=== PATIENT | female | born 1970 | race Caucasian/White ===

== ENCOUNTER 2018-04-08 18:07 | Outpatient (REF) | payer BC, SELFPAY ==
[2018-04-08 21:08] LABS: HCT 36.9 % (36.0-46.0); HGB 11.5 g/dL (12.0-15.5); Mean Corp. HGB Concentration 31.2 g/dL (32.0-36.0); Mean Corpuscular Hemoglobin 24.3 pg (27.0-33.0); Mean Platelet Volume 10.8 fL (8.0-11.0); Platelet Count 446 x1000/uL (130-400); RBC 4.73 m/cumm (4.00-5.20); RBC Distribution Width 16.7 % (11.7-14.6); White Blood Cell Count 8.68 k/cumm (4.4-10.8)
[2018-04-08 21:35] LABS: Iron 31 ug/dL (50-175); Total Iron Binding Capacity 420 ug/dL (250-450); Transferrin Sat 7 % (15-50)
[2018-04-08 21:48] LABS: Cholesterol 283 mg/dL (50-200); HDL Cholesterol 54 mg/dL (40-60); LDL CHOLESTEROL 197 mg/dL (<100); TSH 2.01 uIU/mL (0.358-3.74); Triglyceride 170 mg/dL (30-150)
[2018-04-08 22:01] LABS: Vitamin D 25 Total 15.2 ng/ml (30-100)
[2018-04-08 22:10] LABS: FREE T4 0.96 ng/dL (0.76-1.46)
== END 2018-04-08 18:27 ==
LOC: NCHCN 18:07
PROVIDERS: PCP Nurse Practitioner Family; Visit Provider Nurse Practitioner Family
DX: E04.2 Nontoxic multinodular goiter (principal); N95.1 Menopausal and female climacteric states; M54.5 Low back pain; F41.8 Other specified anxiety disorders; R53.83 Other fatigue; E78.5 Hyperlipidemia, unspecified; E66.9 Obesity, unspecified
CPT/HCPCS: 80061; 82306; 83721; 85027; 83540; 83550; 84439; 84443; 84481

== ENCOUNTER 2018-07-09 08:14 | Outpatient (REF) | payer BC, SELFPAY ==
[2018-07-09 13:27] LABS: HCT 39.2 % (36.0-46.0); HGB 12.4 g/dL (12.0-15.5); Mean Corp. HGB Concentration 31.6 g/dL (32.0-36.0); Mean Corpuscular Hemoglobin 25.7 pg (27.0-33.0); Mean Corpuscular Volume 81.2 fL (80-95); Mean Platelet Volume 10.7 fL (8.0-11.0); Platelet Count 409 x1000/uL (130-400); RBC 4.83 m/cumm (4.00-5.20); White Blood Cell Count 6.49 k/cumm (4.4-10.8)
[2018-07-11 06:35] LABS: Vitamin D 25 Total 16.2 ng/ml (30-100)
== END 2018-07-09 08:34 ==
LOC: NCHCN 08:14
PROVIDERS: PCP Nurse Practitioner Family; Visit Provider Nurse Practitioner Family
DX: D50.9 Iron deficiency anemia, unspecified (principal); E55.9 Vitamin D deficiency, unspecified
CPT/HCPCS: 82306; 85027

== ENCOUNTER 2018-11-05 15:16 | Outpatient (REF) | payer SELFPAY | END 2018-11-05 15:36 | LOC: NCHCN 15:16 | PROVIDERS: PCP Nurse Practitioner Family; Visit Provider Nurse Practitioner Family | DX: N39.0 Urinary tract infection, site not specified (principal); M54.5 Low back pain | CPT/HCPCS: 87086 ==

== ENCOUNTER 2019-04-09 06:13 | Outpatient (CLI) | payer BC, SELFPAY ==
--- NOTE | 2019-04-09 08:37 | DI.MAMMO_ITS ---
EXAM: MG MAMMO SCREENING CLINICAL HISTORY: SCREENING, Z12.31. TECHNIQUE: Bilateral full field digital CC and MLO mammographic images were obtained with 3D tomosyn thesis and utilizing computer aided detection (CAD). COMPARISON: Available for comparison. FINDINGS: Masses/Architectural Distortion: None seen. Microcalcifications: No suspicious pleomorphic-type are seen. Skin Thickening/Nipple Retraction: None. IMPRESSION: 1. No significant interval change with no specific features of malignancy noted. 2. Unless there is more urgent need, screening mammography is recommended, as per [place] [employer] guidelines. ACR BI-RAD Category- 1 Negative Breast Density - Category C - Heterogeneously dense The mammogram demonstrates the patient's breast tissue is dense. Dense breast tissue is very common a nd is not abnormal but dense breast tissue can make it harder to find cancer on a mammogram. Also, de nse breast tissue may increase their breast cancer risk. This information about the result of the [facility] mogram report was provided to the patient to raise their awareness. Use this report when you speak wi th the patient about their risks for breast cancer, which includes their family history. At that time , you may recommend for more screening tests (Ultrasound or MRI) as they might be useful based on the ir risk. A negative radiographic report should not delay biopsy if a dominant or clinically suspicious mass is present. Up to ten percent of cancers are not identified on mammography. A negative report may reinforce clinical impression. Adenosis and dense breasts may obscure an underlying neoplasm. False positive reports average 6 to 10%. Patient will receive a letter notifying them of these results.
== END 2019-04-09 06:33 ==
PROVIDERS: PCP Nurse Practitioner Family; Visit Provider Nurse Practitioner Family
DX: Z12.31 Encounter for screening mammogram for malignant neoplasm of breast (principal)
CPT/HCPCS: 77063; 77067

== ENCOUNTER 2019-04-15 08:56 | Outpatient (CLI) | payer BC, SELFPAY ==
[2019-04-15 09:43] LABS: Abs Immature Grans 0.02 k/cumm (0.0-0.09); Absolute Basophil Count 0.03 k/cumm (0.0-0.2); Absolute Eosinophil Count 0.18 k/cumm (0.0-0.7); Absolute Lymphocyte Count 2.08 k/cumm (1.2-3.4); Basophils % 0.4; Eosinophils % 2.2; HCT 36.4 % (36.0-46.0); HGB 11.5 g/dL (12.0-15.5); Immature Grans % 0.2 %; Mean Corp. HGB Concentration 31.6 g/dL (32.0-36.0); Mean Corpuscular Hemoglobin 24.8 pg (27.0-33.0); Mean Corpuscular Volume 78.6 fL (80-95); Mean Platelet Volume 9.6 fL (8.0-11.0); Neutrophils % 66.2; Platelet Count 425 x1000/uL (130-400); RBC 4.63 m/cumm (4.00-5.20); RBC Distribution Width 16.3 % (11.7-14.6); White Blood Cell Count 8.31 k/cumm (4.4-10.8)
[2019-04-15 10:35] LABS: Iron 28 ug/dL (50-170)
[2019-04-15 10:46] LABS: Calculated LDL 166 mg/dL (<100); Cholesterol 244 mg/dL (<200); HDL Cholesterol 46 mg/dL (40-60); TSH 1.64 uIU/mL (0.36-3.74); Triglyceride 161 mg/dL (<150)
[2019-04-15 11:06] LABS: FREE T4 1.08 ng/dL (0.76-1.46)
[2019-04-15 17:16] LABS: T3,Free 3.1 pg/mL (2.8-5.3)
[2019-04-17 05:29] LABS: Vitamin D 25 Total 15.9 ng/ml (30-100)
== END 2019-04-15 09:16 ==
PROVIDERS: PCP Nurse Practitioner Family; Visit Provider Nurse Practitioner Family
DX: Z00.00 Encounter for general adult medical examination without abnormal findings (principal); D50.9 Iron deficiency anemia, unspecified; K30 Functional dyspepsia; K42.9 Umbilical hernia without obstruction or gangrene; G47.62 Sleep related leg cramps; N39.490 Overflow incontinence; E66.9 Obesity, unspecified; E04.2 Nontoxic multinodular goiter
CPT/HCPCS: 36415; 80061; 82306; 83540; 84439; 84443; 84481; 85025

== ENCOUNTER 2020-06-29 12:36 | Outpatient (REF) | payer OTHER, SELFPAY ==
[2020-06-29 21:11] LABS: Abs Immature Grans 0.04 10^3/uL (0.0-0.06); Absolute Basophil Count 0.05 10^3/uL (0.0-0.2); Absolute Eosinophil Count 0.18 10^3/uL (0.0-0.7); Absolute Monocyte Count 1.24 10^3/uL (0.1-0.8); Absolute Neutrophil Count 8.08 10^3/uL (1.2-6.7); Basophils % 0.4; Eosinophils % 1.5; HCT 38.8 % (36.0-46.0); HGB 12.2 g/dL (11.2-15.7); Immature Grans % 0.3; Lymphocytes % 18.7; MCH 25.4 pg (27.0-33.0); MCHC 31.4 % (32.0-36.0); MCV 80.7 fL (80-95); MPV 10.1 fL (8.0-11.0); Monocytes % 10.5; Neutrophils % 68.6; Nucleated RBC 0 %; Platelet Count 389 10^3/uL (130-400); RBC 4.81 10^6/uL (3.93-5.22); RDW 16.3 % (11.7-14.6); RDW-SD 47.2 fL; WBC 11.78 10^3/uL (4.4-10.8)
== END 2020-06-29 12:37 | disposition home or self-care (01) ==
LOC: LBN 12:36
PROVIDERS: PCP Nurse Practitioner Family; Visit Provider Family Medicine
DX: J02.9 Acute pharyngitis, unspecified (principal)
CPT/HCPCS: 85025; 87070

== ENCOUNTER 2020-12-17 09:10 | Outpatient (REF) | payer OTHER, SELFPAY ==
[2020-12-17 14:55] LABS: Abs Immature Grans 0.03 10^3/uL (0.0-0.06); Absolute Basophil Count 0.05 10^3/uL (0.0-0.2); Absolute Eosinophil Count 0.31 10^3/uL (0.0-0.7); Absolute Lymphocyte Count 2.41 10^3/uL (1.2-3.4); Absolute Monocyte Count 0.46 10^3/uL (0.1-0.8); Absolute Neutrophil Count 4.41 10^3/uL (1.2-6.7); Basophils % 0.7; HCT 39.2 % (36.0-46.0); HGB 12.6 g/dL (11.2-15.7); Immature Grans % 0.4; Lymphocytes % 31.4; MCH 26.6 pg (27.0-33.0); MCHC 32.1 % (32.0-36.0); MCV 82.9 fL (80-95); MPV 10.3 fL (8.0-11.0); Neutrophils % 57.5; Nucleated RBC 0 %; Platelet Count 417 10^3/uL (130-400); RBC 4.73 10^6/uL (3.93-5.22); RDW 15.1 % (11.7-14.6); RDW-SD 45.7 fL; WBC 7.67 10^3/uL (4.4-10.8)
[2020-12-17 15:07] LABS: Iron 70 ug/dL (50-170); Total Iron Binding Capacity 366 ug/dL (250-450); Transferrin Sat 19 % (15-50)
[2020-12-17 15:14] LABS: Calculated LDL 196 mg/dL (<100); Cholesterol 285 mg/dL (<200); HDL Cholesterol 53 mg/dL (40-60); TSH 1.53 uIU/mL (0.36-3.74); Triglyceride 181 mg/dL (<150)
[2020-12-20 04:57] LABS: Vitamin D 25 Total 13.9 ng/mL (30-100)
== END 2020-12-17 09:11 | disposition home or self-care (01) ==
LOC: NCHCN 09:10
PROVIDERS: PCP Nurse Practitioner Family; Visit Provider Nurse Practitioner Family
DX: E78.5 Hyperlipidemia, unspecified (principal); R53.83 Other fatigue; E55.9 Vitamin D deficiency, unspecified; E04.2 Nontoxic multinodular goiter; F32.9 Major depressive disorder, single episode, unspecified
CPT/HCPCS: 80061; 82306; 83540; 83550; 84443; 85025

== ENCOUNTER 2021-02-02 00:25 | Outpatient (CLI) | payer OTHER, SELFPAY ==
--- NOTE | 2021-02-02 07:51 | DI.MAMMO_ITS ---
Exam(s) MAMMO SCREENING EXAM: MAMMO SCREENING CLINICAL HISTORY: SCREENING MAMMO Z12.31, FAM HX BREAST CANCER Z80.3 TECHNIQUE: Bilateral full field digital CC and MLO mammographic images were obtained with 3D tomosyn thesis and utilizing computer aided detection (CAD). COMPARISON: Available for comparison. FINDINGS: Masses/Architectural Distortion: There is a focal asymmetry in the inferior right breast seen on the MLO view 6 cm from the nipple. This area should be further evaluated with a spot compression view. Microcalcifications: No suspicious pleomorphic-type are seen. Skin Thickening/Nipple Retraction: None. IMPRESSION: 1. Focal asymmetry in the inferior right breast on the MLO view. 2. Spot compression views recommended for further evaluation. Ultrasound may be indicated at that ti me. BI-RADS Category 0 - Assessment Incomplete: Need additional imaging evaluation Breast Density - Category C - Heterogeneously dense Breast density category C or D implies that the patient has dense breast tissue. Dense breast tissue is very common and is not abnormal but dense breast tissue can make it harder to find cancer on a ma mmogram. Also, dense breast tissue may increase their breast cancer risk. This information about the result of the mammogram report was provided to the patient to raise their awareness. Use this report when you speak with the patient about their risks for breast cancer, which includes their family hist ory. At that time, you may recommend for more screening tests (Ultrasound or MRI) as they might be us eful based on their risk. A negative radiographic report should not delay biopsy if a dominant or clinically suspicious mass is present. Up to ten percent of cancers are not identified on mammography. A negative report may reinforce clinical impression. Adenosis and dense breasts may obscure an underlying neoplasm. False positive reports average 6 to 10%. Patient will receive a letter notifying them of these results.
== END 2021-02-02 00:45 ==
PROVIDERS: PCP Nurse Practitioner Family; Visit Provider Nurse Practitioner Family
DX: Z12.31 Encounter for screening mammogram for malignant neoplasm of breast (principal); Z80.3 Family history of malignant neoplasm of breast; R92.8 Other abnormal and inconclusive findings on diagnostic imaging of breast
CPT/HCPCS: 77063; 77067

== ENCOUNTER 2021-02-11 00:24 | Outpatient (CLI) | payer OTHER, SELFPAY ==
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
== END 2021-02-11 00:44 ==
PROVIDERS: PCP Nurse Practitioner Family; Visit Provider Nurse Practitioner Family
DX: Z12.31 Encounter for screening mammogram for malignant neoplasm of breast (principal); R92.8 Other abnormal and inconclusive findings on diagnostic imaging of breast
CPT/HCPCS: 76642; 77063; 77067

== ENCOUNTER 2021-07-04 13:34 | Outpatient (REF) | payer OTHER, SELFPAY ==
[2021-07-04 14:22] LABS: Abs Immature Grans 0.03 10^3/uL (0.0-0.06); Absolute Basophil Count 0.05 10^3/uL (0.0-0.2); Absolute Eosinophil Count 0.29 10^3/uL (0.0-0.7); Absolute Lymphocyte Count 2.42 10^3/uL (1.2-3.4); Absolute Monocyte Count 0.47 10^3/uL (0.1-0.8); Basophils % 0.6; Eosinophils % 3.7; HCT 41.4 % (36.0-46.0); Immature Grans % 0.4; Lymphocytes % 31.2; MCH 26.9 pg (27.0-33.0); MCHC 31.4 % (32.0-36.0); MCV 86 fL (80-95); Monocytes % 6.1; Platelet Count 439 10^3/uL (130-400); RBC 4.84 10^6/uL (3.93-5.22); RDW 14.3 % (11.7-14.6); RDW-SD 44.6 fL; WBC 7.76 10^3/uL (4.4-10.8)
[2021-07-04 14:44] LABS: Calculated LDL 195 mg/dL (<100); Cholesterol 282 mg/dL (<200); HDL Cholesterol 55 mg/dL (40-60); Triglyceride 160 mg/dL (<150)
[2021-07-04 14:59] LABS: Vitamin D 25 Total 17.4 ng/mL (30-100)
== END 2021-07-04 13:35 | disposition home or self-care (01) ==
LOC: NCHCN 13:34
PROVIDERS: PCP Nurse Practitioner Family; Visit Provider Nurse Practitioner Family
DX: E04.1 Nontoxic single thyroid nodule (principal); E55.9 Vitamin D deficiency, unspecified; E78.5 Hyperlipidemia, unspecified; R53.83 Other fatigue; D47.3 Essential (hemorrhagic) thrombocythemia; E66.9 Obesity, unspecified; R60.0 Localized edema
CPT/HCPCS: 80061; 82306; 85025

== ENCOUNTER 2021-07-26 15:52 | Outpatient (REF) | payer OTHER, SELFPAY ==
[2021-08-02 11:20] LABS: JAK2 Result see interpretation
== END 2021-07-26 15:53 | disposition home or self-care (01) ==
LOC: NCHCN 15:52
PROVIDERS: PCP Nurse Practitioner Family; Visit Provider Nurse Practitioner Family
DX: E04.1 Nontoxic single thyroid nodule (principal); D47.3 Essential (hemorrhagic) thrombocythemia
CPT/HCPCS: 81270

== ENCOUNTER 2021-12-20 18:14 | Emergency (ER) | payer OTHER, SELFPAY ==
[2021-12-20 18:25] VITALS: BP 183/91; PULSE 78; RESP 18; TEMP 36.8; O2SAT 97
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
[2021-12-20 22:27] VITALS: PULSE 65; RESP 22; TEMP 36.7; O2SAT 97
== END 2021-12-20 22:38 | disposition home or self-care (01) ==
PROVIDERS: Emergency Provider Nurse Practitioner Family; PCP Nurse Practitioner Family
DX: S06.0X0A Concussion without loss of consciousness, initial encounter (principal); M54.6 Pain in thoracic spine; M54.50 Low back pain, unspecified; V89.2XXA Person injured in unspecified motor-vehicle accident, traffic, initial encounter; M54.2 Cervicalgia
CPT/HCPCS: 96361; 96374; 96375; 99284; 70450; 72072; 72110; 72125; 99281

== ENCOUNTER 2021-12-27 08:50 | Outpatient (REF) | payer OTHER, SELFPAY ==
[2021-12-27 17:46] LABS: Calculated LDL 197 mg/dL (<100); Cholesterol 285 mg/dL (<200); Ferritin 27 ng/mL (8-252); HDL Cholesterol 55 mg/dL (40-60); Magnesium 1.9 mg/dL (1.8-2.4); TSH 2.16 uIU/mL (0.36-3.74); Triglyceride 165 mg/dL (<150); Vitamin B12 230 pg/mL (193-986)
== END 2021-12-27 08:51 | disposition home or self-care (01) ==
LOC: NCHCN 08:50
PROVIDERS: PCP Nurse Practitioner Family; Visit Provider Nurse Practitioner Family
DX: E04.1 Nontoxic single thyroid nodule (principal); D47.3 Essential (hemorrhagic) thrombocythemia; I10 Essential (primary) hypertension; R53.83 Other fatigue; D50.9 Iron deficiency anemia, unspecified; E78.5 Hyperlipidemia, unspecified; E55.9 Vitamin D deficiency, unspecified
CPT/HCPCS: 80061; 82306; 82607; 82728; 83735; 84443

== ENCOUNTER 2022-01-03 09:18 | Outpatient (REF) | payer OTHER, SELFPAY ==
--- NOTE | 2022-01-03 08:45 | PAPFT_PTH ---
PATIENT: Yodit Darby LOC: [facility]#:[id number] AGE/SX: 51/F ROOM: RE01/03/[address]: Camelia Larose : 1970 BED: DIS: 01/03/2022 SPEC #: [id number] RECD: 01/03/22 17:50 STATUS: PERRI REJeremias #: [id number] RACHAEL: 01/03/22 08:[address]: Camelia Larose DEPT: [facility] Cytology RECD BY: Irina Dick Tissues: 1 - CX/ENDOCX FOR PAP SMEARS Procedures: PAP THIN PREP/UVM Screening HPV DNA PROBE Comments: [id number]
== END 2022-01-03 09:19 | disposition home or self-care (01) ==
LOC: NCHCN 09:18
PROVIDERS: PCP Nurse Practitioner Family; Visit Provider Nurse Practitioner Family
DX: Z12.4 Encounter for screening for malignant neoplasm of cervix (principal); Z11.51 Encounter for screening for human papillomavirus (HPV)
CPT/HCPCS: 88142; 87624

== ENCOUNTER 2022-01-23 15:03 | Outpatient (REF) | payer OTHER, SELFPAY | END 2022-01-23 15:04 | disposition home or self-care (01) | LOC: NCHCN 15:03 | PROVIDERS: PCP Nurse Practitioner Family; Visit Provider Internal Medicine | DX: N30.00 Acute cystitis without hematuria (principal) | CPT/HCPCS: 87086 ==

== ENCOUNTER 2022-03-24 00:05 | Outpatient (CLI) | payer OTHER, SELFPAY ==
--- NOTE | 2022-03-24 | DI.MAMMO_ITS ---
Exam(s) MAMMO SCREENING EXAM: MAMMO SCREENING CLINICAL HISTORY: SCREENING,Z12.31,PREVENTIVE HEALTH CARE,Z00.00 TECHNIQUE: Bilateral full field digital CC and MLO mammographic images were obtained with 3D tomosyn thesis and utilizing computer aided detection (CAD). COMPARISON: Available for comparison. FINDINGS: Masses/Architectural Distortion: There is an area of increased density in the retroareolar region of the left breast on the MLO view. This may represent overlying fibroglandular tissue. Microcalcifications: No suspicious pleomorphic-type are seen. Skin Thickening/Nipple Retraction: None. IMPRESSION: 1. Area of increased density in the retroareolar region of the left breast on the MLO view. 2. A spot compression views requested for further evaluation. Ultrasound may be indicated at that ti me. BI-RADS Category 0 - Assessment Incomplete: Need additional imaging evaluation Breast Density - Category C - Heterogeneously dense Breast density category C or D implies that the patient has dense breast tissue. Dense breast tissue is very common and is not abnormal but dense breast tissue can make it harder to find cancer on a ma mmogram. Also, dense breast tissue may increase their breast cancer risk. This information about the result of the mammogram report was provided to the patient to raise their awareness. Use this report when you speak with the patient about their risks for breast cancer, which includes their family hist ory. At that time, you may recommend for more screening tests (Ultrasound or MRI) as they might be us eful based on their risk. A negative radiographic report should not delay biopsy if a dominant or clinically suspicious mass is present. Up to ten percent of cancers are not identified on mammography. A negative report may reinforce clinical impression. Adenosis and dense breasts may obscure an underlying neoplasm. False positive reports average 6 to 10%. Patient will receive a letter notifying them of these results.
== END 2022-03-24 00:25 ==
LOC: DI 00:07
PROVIDERS: PCP Nurse Practitioner Family; Visit Provider Nurse Practitioner Family
DX: Z00.00 Encounter for general adult medical examination without abnormal findings (principal); Z12.31 Encounter for screening mammogram for malignant neoplasm of breast; R92.2 Inconclusive mammogram
CPT/HCPCS: 77063; 77067

== ENCOUNTER 2022-03-31 00:29 | Outpatient (CLI) | payer OTHER, SELFPAY ==
--- NOTE | 2022-03-31 | DI.US_ITS ---
Exam(s) MG MAMMO SCREEN CALL BACK UNI US BREAST LT COMPLETE EXAM: MG MAMMO SCREEN CALL BACK UNI and U/S breast LT complete CLINICAL HISTORY: F/U MAMMO, R92.8,AREA OF INCREASED DENSITY. TECHNIQUE: Craniocaudal and mediolateral oblique Full Field Digital Mammography views of the left br east with Computer Aided Diagnosis followed by Tomosynthesis and left breast ultrasound. COMPARISON: Comparison is made with prior examinations. FINDINGS: Mammography/Tomosynthesis: Masses/Architectural Distortion: None seen. The area of concern is less prominent compared to the jonah or examination. No mass persists. Microcalcifictions: No suspicious pleomorphic-type are seen. Skin Thickening/Nipple Retraction: None. Complete left breast US: Echotexture: Normal appearance of the glandular tissue. Shadowing: No suspicious foci. Cyst: There is a 0.4 x 0.3 x 0.2 cm cyst at the 4 o'clock position. There is a 0.4 x 0.4 x 0.3 cm si mple cyst at the 8 o'clock position. Solid lesions: None seen. Ductal dilation: Mild retroareolar ductal dilatation is seen. No intraluminal masses are present. IMPRESSION: 1. No evidence of malignancy is noted. 2. Unless there is more urgent need, follow-up screening mammography is recommended, as per [place] [employer] guidelines. 3. The findings were discussed with the patient on the date of the examination. BI-RADS Category 2 - Benign Findings Breast Density - Category C - Heterogeneously dense Breast density Category C or D implies that the patient has dense breast tissue. Dense breast tissue can make it harder to find cancer on a mammogram. Dense breast tissue is also associated with an incr eased risk of breast cancer. This information about the result of the mammogram report was provided to the patient to raise their awareness. Use this report when you speak with the patient about their risks for breast cancer, which includes their family history. At that time, you may recommend additional screening tests (Ultrasoun d or MRI) as these tests may add significant information. A negative radiographic report should not delay biopsy if a dominant or clinically suspicious mass is present. Up to ten percent of cancers are not identified on mammography. A negative report may reinforce clinical impression. Adenosis and dense breasts may obscure an underlying neoplasm. False positive reports average 6 to 10%. Patient will receive a letter notifying them of these results.
== END 2022-03-31 00:49 ==
LOC: DI 00:29
PROVIDERS: PCP Nurse Practitioner Family; Visit Provider Nurse Practitioner Family
DX: Z12.31 Encounter for screening mammogram for malignant neoplasm of breast (principal); R92.8 Other abnormal and inconclusive findings on diagnostic imaging of breast
CPT/HCPCS: 76642; 77063; 77067

== ENCOUNTER 2022-09-11 06:17 | Day surgery (SDC) | payer OTHER, SELFPAY ==
--- NOTE | 2022-09-10 10:49 | W.PREOPHP ---
Assessment and Plan Assessment and plan (1) Screening for colon cancer: Status: Acute Assessment and plan: We reviewed the role of screening colonoscopy as part of routine health maintenance. I think she has a good understanding of the risks and benefits of the procedure. We can proceed with colonoscopy as planned. History of Present Illness History of Present Illness Chief Complaint: Screening colonoscopy Narrative: 51 y/o female with history of obesity, iron deficiency anemia, GERD and hyperlipidemia presents for her first colonoscopy screening pre-op. She denies a family history of colon cancer. She denies any changes in bowel habits including bloody or black tarry stools, abdominal pain, diarrhea or constipation. She denies constitutional symptoms.? She describes occasional use of marijuana edibles.? Denies use of? any other recreational or illegal drugs. She denies chest pain, palpitations, dyspnea or dyspnea with exertion. She denies prior history or family history of adverse reactions or complications with anesthesia. The patient denies any history of stroke, [place], seizures, bleeding or clotting disorders. She denies having any implanted metal in her body. PFSH All Active Problems Screening for colon cancer (Acute) Iron deficiency anemia (Acute) Medical History Anxiety and depression Bilateral tinnitus Chronic headaches Dyspepsia Elevated blood pressure reading without diagnosis of hypertension Family history of breast cancer Family history of coronary artery disease Fatigue History of HPV infection History of uterine fibroid Hx of sleep apnea uses a cpap Hyperlipidemia Joint pain Low back pain Multinodular thyroid Nocturnal leg cramps Nosebleed Obesity Overflow incontinence Pedal edema Perimenopausal Seasonal allergies Umbilical hernia Vitamin D deficiency Surgical History Hx of section x 2 Hx of cholecystectomy Hx of oral surgery Hx of tubal ligation during second c secction Social History Smoking/Tobacco Use Status: Never Smoking risk assessment performed?: Yes Alcohol Intake: current Alcohol Intake frequency: a few times a month Alcohol type: beer, wine and hard liquor Drug use: Occasionally Substance use type: marijuana Details: Edibles Housing: house Do you feel safe at home: Yes Do you feel safe in your relationship?: Yes Meds Allergies and Home Medications Allergies Allergy/AdvReac Type Severity Reaction Status Date / Time fluconazole [From Diflucan] Allergy Severe rash Verified 09/11/22 06:43 Home Medications Medication Instructions Recorded Confirmed Type ergocalciferol (vitamin D2) 1,250 1,250 mcg PO QWEEK 01/25/21 09/11/22 History mcg (50,000 unit) capsule famotidine 20 mg tablet 20 mg PO DAILY PRN 01/25/21 09/11/22 History fluoxetine 20 mg capsule 20 mg PO DAILY 01/25/21 09/11/22 History multivitamin 1 tab PO DAILY 01/25/21 09/11/22 History amitriptyline 25 mg tablet 25 mg PO DAILY 12/20/21 09/11/22 History CBD 20 mg PO BID 06/01/22 09/11/22 History acetylcysteine 600 mg capsule (NAC) 600 mg PO BID 06/01/22 09/11/22 History zinc gluconate-zinc picolinate 30 30 mg PO DAILY 06/01/22 09/11/22 History mg capsule Exam Const General: cooperative, healthy appearing and comfortable Orientation: awake and oriented x3 Eyes General: appearance normal, both eyes and all related structures Conjunctivae: conjunctivae normal Sclera: sclerae normal Resp Effort & Inspection: normal respiratory effort and able to speak in complete sentences Auscultation: clear to auscultation bilaterally Cardio Jugular venous pressure: no JVD Rate: regular rate Rhythm: regular rhythm Heart Sounds: S1 normal and S2 normal GI Inspection: non-distended Palpation: soft, no guarding, no hernias and nontender Auscultation: normal bowel sounds Skin General skin exam: normal turgor Neuro General: patient alert, patient awake and patient oriented x3 Cognition: normal cognition Extrem Right lower extremity: no edema Left lower extremity: no edema
--- NOTE | 2022-09-10 10:49 | W.PM.DSUDISC ---
Date of service: 09/11/22 Time of Service: 07:54 Discharge Plan Disposition Patient Disposition: Home Condition: Good Discharge Details Reason For Visit: Colonoscopy Attending Provider: Tobin Aden Primary Care Provider: Camelia Larose Home Meds and New Rx's Prescriptions: Continued acetylcysteine [NAC] 600 mg capsule 600 mg PO BID CBD 20 mg oil 20 mg PO BID famotidine 20 mg tablet 20 mg PO DAILY PRN multivitamin Tablet 1 tab PO DAILY ergocalciferol (vitamin D2) 1,250 mcg (50,000 unit) capsule 1,250 mcg PO QWEEK fluoxetine 20 mg capsule 20 mg PO DAILY zinc gluconate-zinc picolinate 30 mg capsule 30 mg PO DAILY amitriptyline 25 mg Tablet 25 mg PO DAILY Discontinued polyethylene glycol 3350 17 gram/dose powder 238 g PO ONCE Qty: 238 0RF Rx Instructions: take per colonoscopy instructions bisacodyl [Dulcolax (bisacodyl)] 5 mg tablet,delayed release (DR/EC) 5 mg PO ONCE Qty: 4 0RF Rx Instructions: take per colonoscopy instructions Discharge Instructions Instructions: Hemorrhoids (GEN), Diverticulosis (GEN), Diverticulosis Diet (GEN) Additional Instructions: Polyp, we were able to complete your colonoscopy today without any problems. I did not see any signs of tumors or polyps. Incidentally, you do have an internal hemorrhoid, as well as some mild diverticulosis. These are small weak spots in the colon wall that typically accumulate with age. They can become infected and inflamed. When that happens, patients typically experience pain on the left side of the abdomen. otherwise, they pose no specific risk. We have attached a little bit of information here regarding hemorrhoids as well as diverticulosis. With regards to your screening colonoscopy, you will need another one in 10 years. 1. If tolerated, consume a soft, low fiber diet for 1-2 days. 2[address] Do not drive, drink alcohol, operate machinery, make critical decisions, or do activities that require coordination or balance for 24 hours. 3. Because air was put into your colon during the procedure, expelling air from your rectum (passing gas or farting) is normal. 4. You may not have a bowel movement for 1-3 days because of the colonoscopy prep. This is normal. 5. Go directly to the emergency room if you notice any of the following: Develop chills (warm to touch), or if you have a thermometer and your temperature is above 101 Difficulty breathing or difficultly swallowing Persistent vomiting Severe abdominal pain, other than gas cramps Severe chest pain Black, tarry stools Any bleeding ? exceeding one tablespoon 6. Call your physician if the site where your intravenous was started becomes red, swollen, painful, and warm to touch. 7. Your physician has reviewed your pre-procedure medications. Please continue to take those medications as previously ordered. You will be given specific information/education regarding any changes to your medications before leaving. Activity:: Activity as Tolerated Diet:: As Tolerated Discharge Orders Discharge Orders: Discharge Order (Routine); Ordered 09/10/22 Ordered By: Tobin Aden DS: Diagnosis Discharge Diagnosis (1) Screening for colon cancer: Status: Acute Asessment and Plan: Negative screening colonoscopy.
--- NOTE | 2022-09-10 10:50 | W.COLOREPORT ---
Date of service: 09/11/22 Time of Service: 07:56 Colonoscopy Report Date of procedure: 09/11/22 Pre-op diagnosis general: Screening colonoscopy Post-op diagnosis procedure note: other (Diverticulosis, internal hemorrhoids) Procedure: Colonoscopy Surgeon: Tobin Aden Anesthesia Type: General:No Airway Estimated blood loss (mL): 0 Pathology: none sent Complications: None Disposition: same day Indications: 51 y/o female with history of obesity, iron deficiency anemia, GERD and hyperlipidemia presents for her first colonoscopy screening pre-op. She denies a family history of colon cancer. She denies any changes in bowel habits including bloody or black tarry stools, abdominal pain, diarrhea or constipation. She denies constitutional symptoms. She describes occasional use of marijuana edibles. Denies use of any other recreational or illegal drugs.. Prep: Miralax/Dulcolax Procedure Start Time: 07:27 Procedure End Time: 07:45 Retraction Time: 11 Findings: Internal hemorrhoids, sigmoid diverticulosis Procedure Description: After the induction of monitored anesthetic care, and with the patient in left lateral decubitus position, I began by performing an external anorectal exam.? Perineum and skin were normal, as was the anal verge.? There was no evidence of external hemorrhoids.? Next, I performed a digital rectal exam.? I did not appreciate any abnormal findings.? Next, I advanced a colonoscope into the rectal vault.? I performed retroflexion.? There is grade 1 internal hemorrhoids.? Using insufflation, I then advanced the colonoscope beyond the rectal folds and into the sigmoid colon before advancing towards the cecum.? The quality of the prep was excellent.? There was some sigmoid diverticulosis. The scope was noted to be in the cecum by identification of the ileocecal valve and appendiceal orifice.? I then began withdrawing the colonoscope using repeated irrigation as necessary for full evaluation of the colonic mucosa. ?Once the scope was withdrawn to the level of the rectum, great care was taken to examine portions of the rectal folds.? I did not see any signs of tumors or polyps anywhere along the large intestine. Finally, the scope was withdrawn and the patient was brought to the same-day surgery recovery unit as the anesthetic wore off. ?The findings and instructions were shared with the patient prior to discharge.
[2022-09-11 06:37] VITALS: BP 143/68; PULSE 82; RESP 14; TEMP 36.4; O2SAT 97
--- NOTE | 2022-09-11 06:50 | W.ANESPRE ---
General Info Date of Service Date Performed: 09/11/22 Height: 5 ft Weight: 108.4 kg Body Mass Index (BMI): 46.6 Surgical Procedure: Operation Date: 09/11/22 07:35 Proposed Procedure Side Surgeon clement Aden MD Meds Allergies and Home Medications Allergies Allergy/AdvReac Type Severity Reaction Status Date / Time fluconazole [From Diflucan] Allergy Severe rash Verified 09/11/22 06:43 Home Medication Medication Instructions Recorded ergocalciferol (vitamin D2) 1,250 1,250 mcg PO QWEEK 01/25/21 mcg (50,000 unit) capsule famotidine 20 mg tablet 20 mg PO DAILY PRN 01/25/21 fluoxetine 20 mg capsule 20 mg PO DAILY 01/25/21 multivitamin 1 tab PO DAILY 01/25/21 amitriptyline 25 mg tablet 25 mg PO DAILY 12/20/21 CBD 20 mg PO BID 06/01/22 acetylcysteine 600 mg capsule (NAC) 600 mg PO BID 06/01/22 zinc gluconate-zinc picolinate 30 30 mg PO DAILY 06/01/22 mg capsule Current Visit Medications: Current Medications Generic Name Dose Route Start Last Admin Trade Name Freq PRN Reason Stop Dose Admin Hyoscyamine Sulfate 0.125 mg 09/10/22 10:51 Hyoscyamine 0.125 Mg Sl/Oral/Chew SL 10/10/22 10:50 DIRECTED PRN Ringer's Solution 1,000 mls @ 80 mls/hr 09/11/22 06:00 IV 10/08/22 23:59 [facility] IV Miscellaneous Supplies 1 each 09/11/22 06:00 Iv Access IV 10/08/22 23:59 DIRECTED [facility] Ondansetron HCl 4 mg 09/10/22 10:51 Ondansetron 4 Mg/2 Ml Vial IVP 10/10/22 10:50 Q4H PRN PRN Nausea / Vomiting Sodium Chloride 0 ml 09/11/22 06:00 Normal Saline Flush 10 Ml Syr IV 10/08/22 23:59 PRN PRN Sodium Chloride 0 ml 09/11/22 06:00 Normal Saline 10 Ml Vial IJ 10/08/22 23:59 DIRECTED PRN Sterile Water 0 ml 09/11/22 06:00 Water,Injection,Sterile 10 Ml Vial IJ 10/08/22 23:59 DIRECTED PRN PFSH Active Problems Active Problems: Problem Status Onset Code Screening for colon cancer Z12.11 Iron deficiency anemia D50.9 Medical History Medical History (Updated 09/11/22 @ 06:55 by Aisha Marte) Anxiety and depression Bilateral tinnitus Chronic headaches Dyspepsia Elevated blood pressure reading without diagnosis of hypertension Family history of breast cancer Family history of coronary artery disease Fatigue History of HPV infection History of uterine fibroid Hx of sleep apnea uses a cpap Hyperlipidemia Joint pain Low back pain Multinodular thyroid Nocturnal leg cramps Nosebleed Obesity Overflow incontinence Pedal edema Perimenopausal Seasonal allergies Umbilical hernia Vitamin D deficiency Surgical History Surgical History (Updated 09/11/22 @ 06:46 by Aisha Marte) Hx of section x 2 Hx of cholecystectomy Hx of oral surgery Hx of tubal ligation during second c secction Tobacco Smoking/Tobacco Use Status: Never Alcohol Alcohol Intake: current Alcohol intake frequency: a few times a month Alcohol type: beer, wine and hard liquor Substance Use Substance use: Occasionally Substance use type: marijuana Details: Edibles Vital Signs and Lab Results Vital Signs Most Recent Vital Signs in EMR: Most Recent Vital Signs Temp Pulse Resp BP Pulse Ox 36.4 C L 82 14 143/68 H 97 09/11/22 06:37 09/11/22 06:37 09/11/22 06:37 09/11/22 06:37 09/11/22 06:37 Point of Care Results Point of Care Results: POC- Test(urine) Negative 09/11/22 06:42 Lab Results Blood Type / Crossmatch: No Data to Display Complete Blood Count: No Data to Display Complete Metabolic Panel: No Data to Display Liver Function Panel: No Data to Display Coagulation Panel: No Data to Display Cardiac Panel: No Data to Display Arterial Blood Gas: No Data to Display Venous Blood Gas: No Data to Display Pancreas Panel: No Data to Display Thyroid Panel: No Data to Display Infectious Disease: No Data to Display Blood Cultures: No Data to Display Toxicology Panel: No Data to Display Panel: No Data to Display Anesthesia Assessment and Plan Anesthesia History Personal History: No History of Anesthesia Complications Family History: No Family History of Anesthesia Complications Exercise Tolerance Exercise Tolerance: Metabolic Equivalents>4 Pertinent Negatives Pertinent Negatives: No Symptoms of GERD, No Major Cardiovascular Symptoms or Complaints, No Major Pulmonary Symptoms or Complaints and No History of CVA/TIA Cardiac & Pulmonary Exam Cardiac Exam: Normal S1/S2 Heart Sounds Pulmonary Exam: Clear Bilateral Breath Sounds Implantable Cardiac Device Does patient have a Pacemaker or an ICD?: No Airway Exam Known Difficult Airway: No Mallampati Class: 2 Mouth Opening: Normal (> 3cm) Thyromental Distance: Greater than 3 cm Neck Range of Motion: Full ROM Neck Circumference: Thick Teeth Condition: Normal Dentition ASA Classification ASA Score: ASA 3 Emergency Case?: No NPO Status NPO Status: NPO Clears >2 hours, Solids >8 hours Status Status: Negative HCG Anesthesia Plan Resuscitation Status: Full Code Anesthesia Technique: General Anesthesia Airway Planned: Natural Airway Monitors Used: Standard Monitors
[2022-09-11] MEDS: Lactated Ringers 1,000 ML 80 ML IV (07:00)
[2022-09-11 07:08] VITALS: BMI 46.6
[2022-09-11 07:53] VITALS: BP 120/75; PULSE 73; RESP 17; TEMP 36; O2SAT 94
--- NOTE | 2022-09-11 08:16 | W.ANESPOSTOP ---
Postoperative Evaluation Date, Time and Location Date Performed: 09/11/22 Time Performed: 08:03 Patient Location: Day Surgery Unit Vital Signs Most Recent Imported Vital Signs: Most Recent Vital Signs Temp Pulse Resp BP Pulse Ox 36 C L 73 17 120/75 94 09/11/22 07:53 09/11/22 07:53 09/11/22 07:53 09/11/22 07:53 09/11/22 07:53 Pain Score Most Recent Pain Score: Most Recent Pain Score Pain Level 0 09/11/22 07:53 Assessment Mental Status: Awake (Alert & Oriented to Patient Baseline) Airway and Respiratory Function: Patent airway with normal (patient baseline) respiratory exam Cardiovascular Function: Hemodynamically Stable Hydration Status: Adequately Hydrated Nausea & Vomiting: No Nausea or Vomiting Pain: Pt. Denies Any Pain Peripheral Nerve Block: Patient did not receive a nerve block
[2022-09-11 08:20] VITALS: BP 130/71; PULSE 64; RESP 17; TEMP 36.5; O2SAT 95
== END 2022-09-11 08:55 | disposition home or self-care (01) ==
PROVIDERS: PCP Nurse Practitioner Family; Visit Provider Surgery
PROC: 0DJD8ZZ Inspection of Lower Intestinal Tract, Via Natural or Artificial Opening Endoscopic (ICD-10-PCS; CPT 45378; principal; 2022-09-11 07:30)
DX: Z12.11 Encounter for screening for malignant neoplasm of colon (principal); E66.9 Obesity, unspecified; D50.9 Iron deficiency anemia, unspecified; K21.9 Gastro-esophageal reflux disease without esophagitis; E78.5 Hyperlipidemia, unspecified; K57.30 Diverticulosis of large intestine without perforation or abscess without bleeding; K64.0 First degree hemorrhoids
CPT/HCPCS: 45378; 81025; J2001; J2405

== ENCOUNTER 2022-11-02 13:41 | Outpatient (REF) | payer OTHER, SELFPAY ==
[2022-11-02 21:01] LABS: Bilirubin Negative (Negative); Blood Trace-intact (Negative); Clarity Clear (Clear); Glucose Negative (Negative); Ketones Negative (Negative); Leukocyte Esterase Trace (Negative); Nitrite Negative (Negative); Urobilinogen 0.2 mg/dL (Up to 0.2); pH 5.5 (5-8)
[2022-11-02 21:37] LABS: Bacteria Negative HPF (Negative); C & S Indicated? No/Sq. Contamination; Crystals Negative HPF (Negative); Epithelial Cells Moderate HPF (Negative); Mucus Negative (Negative); RBC 0-2 HPF (0-2)
== END 2022-11-02 13:42 | disposition home or self-care (01) ==
LOC: NCHCN 13:41
PROVIDERS: PCP Nurse Practitioner Family; Visit Provider Nurse Practitioner Family
DX: N39.0 Urinary tract infection, site not specified (principal)
CPT/HCPCS: 81003; 81015; 87086

== ENCOUNTER 2022-11-07 20:59 | Outpatient (REF) | payer OTHER, SELFPAY | END 2022-11-07 21:00 | disposition home or self-care (01) | LOC: LBN 20:59 | PROVIDERS: PCP Nurse Practitioner Family; Visit Provider Nurse Practitioner Family | DX: N39.0 Urinary tract infection, site not specified (principal); R10.30 Lower abdominal pain, unspecified | CPT/HCPCS: 87086; 87480; 87510; 87660 ==

== ENCOUNTER 2022-11-21 12:57 | Outpatient (REF) | payer OTHER, SELFPAY ==
[2022-11-21 16:06] LABS: Abs Immature Grans 0.02 10^3/uL (0.0-0.06); Absolute Basophil Count 0.04 10^3/uL (0.0-0.2); Absolute Eosinophil Count 0.04 10^3/uL (0.0-0.7); Absolute Lymphocyte Count 2.16 10^3/uL (1.2-3.4); Absolute Monocyte Count 0.32 10^3/uL (0.1-0.8); Absolute Neutrophil Count 2.54 10^3/uL (1.2-6.7); Basophils % 0.8; Eosinophils % 0.8; HGB 12.7 g/dL (11.2-15.7); Immature Grans % 0.4; Lymphocytes % 42.2; MCH 27.4 pg (27.0-33.0); MCHC 32.6 % (32.0-36.0); MCV 84 fL (80-95); MPV 10.4 fL (8.0-11.0); Monocytes % 6.3; Neutrophils % 49.5; Platelet Count 400 10^3/uL (130-400); RBC 4.64 10^6/uL (3.93-5.22); RDW 14.6 % (11.7-14.6); RDW-SD 44.9 fL; WBC 5.12 10^3/uL (4.4-10.8)
[2022-11-21 16:47] LABS: ALT 40 U/L (14-59); AST 19 U/L (15-37); Albumin 3.4 g/dL (3.4-5.0); Alkaline Phosphatase 110 U/L (46-116); Anion Gap 12.2 mmol/L (3-11); BUN 12 mg/dL (7-18); Bilirubin, Total 0.3 mg/dL (0.2-1.0); CO2 23.8 mmol/L (21.0-32.0); CREATININE 0.8 mg/dL (0.55-1.02); Calcium 9.5 mg/dL (8.5-10.1); Calculated LDL 165 mg/dL (<100); Chloride 102 mmol/L (98-107); Cholesterol 268 mg/dL (<200); Ferritin 51 ng/mL (8-252); Glucose 147 mg/dL (74-106); HDL Cholesterol 52 mg/dL (40-60); Potassium 4.1 mmol/L (3.5-5.1); Sodium 138 mmol/L (136-145); Total Protein 7.1 g/dL (6.4-8.2); Triglyceride 258 mg/dL (<150)
[2022-11-21 16:54] LABS: Iron 78 ug/dL (50-170); Total Iron Binding Capacity 345 ug/dL (250-450); Transferrin Sat 23 % (15-50)
[2022-11-21 17:37] LABS: Vitamin D 25 Total 18.4 ng/mL (30-100)
== END 2022-11-21 12:58 | disposition home or self-care (01) ==
LOC: NCHCN 12:57
PROVIDERS: PCP Nurse Practitioner Family; Visit Provider Nurse Practitioner Family
DX: D50.9 Iron deficiency anemia, unspecified (principal); R53.83 Other fatigue; I10 Essential (primary) hypertension; E55.9 Vitamin D deficiency, unspecified; E78.5 Hyperlipidemia, unspecified; E04.1 Nontoxic single thyroid nodule; R60.0 Localized edema
CPT/HCPCS: 80053; 80061; 82306; 82728; 83540; 83550; 84443; 85025

== ENCOUNTER 2023-02-06 02:02 | Outpatient (CLI) | payer OTHER, SELFPAY ==
[2023-02-06 16:22] LABS: Abs Immature Grans 0.04 10^3/uL (0.0-0.06); Absolute Basophil Count 0.04 10^3/uL (0.0-0.2); Absolute Lymphocyte Count 3.49 10^3/uL (1.2-3.4); Absolute Monocyte Count 0.58 10^3/uL (0.1-0.8); Absolute Neutrophil Count 4.99 10^3/uL (1.2-6.7); Basophils % 0.4; Eosinophils % 2.1; HCT 39.9 % (36.0-46.0); HGB 13.1 g/dL (11.2-15.7); Immature Grans % 0.4; Lymphocytes % 37.4; MCH 27.5 pg (27.0-33.0); MCHC 32.8 % (32.0-36.0); MCV 84 fL (80-95); MPV 9.3 fL (8.0-11.0); Monocytes % 6.2; Neutrophils % 53.5; Platelet Count 407 10^3/uL (130-400); RBC 4.77 10^6/uL (3.93-5.22); RDW 14.3 % (11.7-14.6); RDW-SD 43.8 fL; WBC 9.34 10^3/uL (4.4-10.8)
== END 2023-02-06 02:03 | disposition home or self-care (01) ==
LOC: LBO 02:02
PROVIDERS: PCP Nurse Practitioner Family; Visit Provider Obstetrics & Gynecology
DX: Z01.818 Encounter for other preprocedural examination (principal)
CPT/HCPCS: 36415; 86850; 86900; 86901; 85025

== ENCOUNTER 2023-02-07 06:50 | Day surgery (SDC) | payer OTHER, SELFPAY ==
[2023-02-07] VITALS (8 sets, daily range): BP systolic 122–158; BP diastolic 63–112; PULSE 70–87; RESP 15–20; TEMP 36.1–36.5; O2SAT 93–99; BMI 47.5
[2023-02-07] MEDS: Lactated Ringers 1,000 ML 125 ML IV (06:49)
--- NOTE | 2023-02-07 07:13 | W.ANESPRE ---
General Info Date of Service Date Performed: 02/07/23 Height: 5 ft Weight: 110.3 kg Body Mass Index (BMI): 47.5 Surgical Procedure: Operation Date: 02/07/23 07:40 Proposed Procedure Side Surgeon p Dilation & Curettage with Hysteroscopy, Excision of Polyp Ines Eagle DO Meds Allergies and Home Medications Allergies Allergy/AdvReac Type Severity Reaction Status Date / Time fluconazole [From Diflucan] Allergy Severe rash Verified 02/07/23 06:47 bactrim AdvReac Uncoded 02/07/23 06:47 Home Medication Medication Instructions Recorded ergocalciferol (vitamin D2) 1,250 1,250 mcg PO QWEEK 01/25/21 mcg (50,000 unit) capsule famotidine 20 mg tablet 20 mg PO DAILY PRN 01/25/21 fluoxetine 20 mg capsule 20 mg PO DAILY 01/25/21 multivitamin 1 tab PO DAILY 01/25/21 amitriptyline 25 mg tablet 25 mg PO DAILY 12/20/21 CBD 20 mg PO BID 06/01/22 acetylcysteine 600 mg capsule (NAC) 600 mg PO BID 06/01/22 zinc gluconate-zinc picolinate 30 30 mg PO DAILY 06/01/22 mg capsule Current Visit Medications: Current Medications Generic Name Dose Route Start Last Admin Trade Name Freq PRN Reason Stop Dose Admin Ringer's Solution 1,000 mls @ 125 mls/hr 02/07/23 06:00 02/07/23 06:49 IV 03/08/23 23:59 125 mls/hr INFUSION CHELY Administration IV Miscellaneous Supplies 1 each 02/07/23 06:00 Iv Access IV 03/08/23 23:59 DIRECTED CHELY Sodium Chloride 0 ml 02/07/23 06:00 Normal Saline Flush 10 Ml Syr IV 03/08/23 23:59 PRN PRN Sodium Chloride 0 ml 02/07/23 06:00 Normal Saline 10 Ml Vial IJ 03/08/23 23:59 DIRECTED PRN Sterile Water 0 ml 02/07/23 06:00 Water,Injection,Sterile 10 Ml Vial IJ 03/08/23 23:59 DIRECTED PRN PFSH Active Problems Active Problems: Problem Status Onset Code Endocervical polyp N84.1 Postmenopausal bleeding N95.0 Nabothian cyst N88.8 Thickened endometrium R93.89 Iron deficiency anemia D50.9 Screening for colon cancer Z12.11 Medical History Medical History Hx of sleep apnea uses a cpap Family history of breast cancer Umbilical hernia History of HPV infection History of uterine fibroid Anxiety and depression Obesity Multinodular thyroid Bilateral tinnitus Dyspepsia Overflow incontinence Nocturnal leg cramps Chronic headaches Perimenopausal Vitamin D deficiency Family history of coronary artery disease Hyperlipidemia Joint pain Low back pain Fatigue Elevated blood pressure reading without diagnosis of hypertension Nosebleed Pedal edema Seasonal allergies Medical History Comments:: 02/07/23: pt uses CPAP nightly Surgical History Surgical History History of colonoscopy (~09/2022) Hx of oral surgery Teeth removed during teen years Hx of tubal ligation during second c secction Hx of cholecystectomy Hx of section x 2 Tobacco Smoking/Tobacco Use Status: Never Alcohol Alcohol Intake: current Alcohol intake frequency: a few times a month Alcohol type: beer, wine and hard liquor Substance Use Substance use: Occasionally Substance use type: marijuana Vital Signs and Lab Results Vital Signs Most Recent Vital Signs in EMR: Most Recent Vital Signs Temp Pulse Resp BP Pulse Ox 36.4 C L 79 16 128/63 97 02/07/23 06:35 02/07/23 06:35 02/07/23 06:35 02/07/23 06:35 02/07/23 06:35 Point of Care Results Point of Care Results: POC- Test(urine) Negative 02/07/23 06:56 Lab Results Blood Type / Crossmatch: Patient ABO/Rh A Positive 02/06/23 Antibody Screen NEGATIVE 02/06/23 Complete Blood Count: White Blood Count 9.34 10^3/uL (4.4-10.8) 02/06/23 16:15 Red Blood Count 4.77 10^6/uL (3.93-5.22) 02/06/23 16:15 Hemoglobin 13.1 g/dL (11.2-15.7) 02/06/23 16:15 Hematocrit 39.9 % (36.0-46.0) 02/06/23 16:15 Platelet Count 407 10^3/uL (130-400) H 02/06/23 16:15 Complete Metabolic Panel: No Data to Display Liver Function Panel: No Data to Display Coagulation Panel: No Data to Display Cardiac Panel: No Data to Display Arterial Blood Gas: No Data to Display Venous Blood Gas: No Data to Display Pancreas Panel: No Data to Display Thyroid Panel: No Data to Display Infectious Disease: No Data to Display Blood Cultures: No Data to Display Toxicology Panel: No Data to Display Panel: No Data to Display Anesthesia Assessment and Plan Anesthesia History Personal History: No History of Anesthesia Complications Family History: No Family History of Anesthesia Complications Exercise Tolerance Exercise Tolerance: Metabolic Equivalents>4 Cardiac & Pulmonary Exam Cardiac Exam: Normal S1/S2 Heart Sounds Pulmonary Exam: Clear Bilateral Breath Sounds Implantable Cardiac Device Does patient have a Pacemaker or an ICD?: No Airway Exam Known Difficult Airway: No Mallampati Class: 2 Mouth Opening: Normal (> 3cm) Thyromental Distance: Greater than 3 cm Neck Range of Motion: Full ROM Neck Circumference: Thick Teeth Condition: Normal Dentition ASA Classification ASA Score: ASA 3 Emergency Case?: No NPO Status NPO Status: NPO Clears >2 hours, Solids >8 hours Status Status: Negative HCG Anesthesia Plan Resuscitation Status: Full Code Anesthesia Technique: General Anesthesia Airway Planned: LMA Monitors Used: Standard Monitors Preoperative Comments:: Planned LMA with backup ETT
--- NOTE | 2023-02-07 08:37 | ENDO_PTH ---
PATIENT: Yodit Darby LOC: [facility] U#:[id number] AGE/SX: 52/F ROOM: RE02/07/[address]: Ines Eagle DO : 1970 BED: DIS: 02/07/2023 SPEC #: [id number] RECD: 02/07/23 12:36 STATUS: PERRI REQ #: [id number] RACHAEL: 02/07/23 08:[address]: Ines Eagle DEPT: Surgical Specimen RECD BY: Irina Dick ENTERED: 02/07/23 12:39 SP TYPE: Endo OTHR DR: Camelia Larose Tissues: 1 - ENDOCERVICAL BX/CURRETTE 2 - ENDOMETRIUM BX/CURRETTE Procedures: GROSS AND MICRO LEVEL 4 Comments: [id number]
--- NOTE | 2023-02-07 08:50 | W.PM.OP ---
Date of service: 02/07/23 Time of Service: 08:50 Operative Note Operative Note DATE OF PROCEDURE: 02/07/23 PRE-OP DIAGNOSIS: Thickened endometrium, bleeding, suspected polyp POST-OP DIAGNOSIS: same PROCEDURE: Hysteroscopy with dilation and curettage SURGEON: Ines Eagle ANESTHESIA TYPE: General LMA/ETT Refer to Anesthesia Record ESTIMATED BLOOD LOSS: 10 PATHOLOGY: other (1. Endocervical curettage 2. Endometrial curettage) COMPLICATIONS: None Patient was transported to: PACU Patient's condition: stable Indications: Abnormal bleeding, thickened endometrium, endocervical polyp seen on examination. Findings: Absence of endocervical polyp, plush endometrium Procedure Description: After full informed consent was obtained, an IV was running, patient was taken the operating suite. She was then placed in the dorsal supine position and endotracheal intubation performed for the administration of general anesthesia. She was then placed in the modified dorsal lithotomy position and prepped and draped in the usual sterile fashion. exam under anesthesia revealed a uterus that was midline mobile, though obscured by her body habitus. Speculum was inserted into the vaginal vault and a single-tooth tenaculum was used to grasp the anterior lip of the cervix. Cervical os dilated to the point that a 5 mm hysteroscope could be passed with ease. Fluid management system and instillation of normal saline, hysteroscope was performed. The endometrium was plush though regular with no evidence of polyp. The previously seen endocervical polyp, per the patient had been passed. There was no evidence of remaining polyp. At this point, the hysteroscope portion of the procedure was terminated and endocervical curettage was performed, followed by an endometrial curettage. Tenaculum was then removed and puncture sites were hemostatic and the speculum was removed. Patient was returned to the dorsal supine position and awoke from anesthesia without difficulty. EBL: 10 mL Findings: Absence of endocervical polyp and plush endometrium Complications: None apparent Fluids: Crystalloid per anesthesia Pathology: 1. Endocervical curettage 2. Endometrial curettage
[2023-02-07] MEDS: Midazolam 2 MG/2 ML VIAL IVP (09:16)
--- NOTE | 2023-02-07 11:10 | W.ANESPOSTOP ---
Postoperative Evaluation Date, Time and Location Date Performed: 02/07/23 Time Performed: 09:25 Patient Location: Day Surgery Unit Vital Signs Most Recent Imported Vital Signs: Most Recent Vital Signs Temp Pulse Resp BP Pulse Ox 36.1 C L 72 16 137/86 94 02/07/23 10:15 02/07/23 10:15 02/07/23 10:15 02/07/23 10:15 02/07/23 10:15 Pain Score Most Recent Pain Score: Most Recent Pain Score Pain Level 0 02/07/23 10:15 Assessment Mental Status: Arousable with meaningful communication Airway and Respiratory Function: Patent airway with normal (patient baseline) respiratory exam Cardiovascular Function: Hemodynamically Stable Hydration Status: Adequately Hydrated Nausea & Vomiting: No Nausea or Vomiting Pain: Pt. Denies Any Pain Peripheral Nerve Block: Patient did not receive a nerve block
== END 2023-02-07 10:56 | disposition home or self-care (01) ==
PROVIDERS: PCP Nurse Practitioner Family; Visit Provider Obstetrics & Gynecology
PROC: 0UDB8ZZ Extraction of Endometrium, Via Natural or Artificial Opening Endoscopic (ICD-10-PCS; CPT 58558; principal; 2023-02-07 07:30)
DX: R93.89 Abnormal findings on diagnostic imaging of other specified body structures (principal); N95.0 Postmenopausal bleeding; N84.0 Polyp of corpus uteri
CPT/HCPCS: 58558; 81025; 88305; J1100; J1885; J2001; J2250; J2405; J2704

== ENCOUNTER → 2023-03-29 02:37 | Outpatient (CLI) | payer OTHER, SELFPAY ==
--- NOTE | 2023-03-29 08:45 | DI.MAMMO_ITS ---
Exam(s) MAMMO SCREENING EXAM: MAMMO SCREENING CLINICAL HISTORY: SCREENING MAMMO FOR BREAST CANCER Z12.31 FAM HX BREAST CANCER Z80.3 TECHNIQUE: Bilateral full field digital CC and MLO mammographic images were obtained with 3D tomosyn thesis and utilizing computer aided detection (CAD). COMPARISON: Available for comparison. FINDINGS: Masses/Architectural Distortion: There is a focal asymmetric density in the supra-areolar region of t he right breast on the MLO view. Microcalcifications: No suspicious pleomorphic-type are seen. Skin Thickening/Nipple Retraction: None. IMPRESSION: 1. Focal asymmetric area 7 cm from the nipple on the right MLO view. This area should be further zeina luated with spot compression view. 2. Limited right breast ultrasound may be indicated at that time. BI-RADS Category 0 - Assessment Incomplete: Need additional imaging evaluation Breast Density - Category C - Heterogeneously dense Breast density category C or D implies that the patient has dense breast tissue. Dense breast tissue is very common and is not abnormal but dense breast tissue can make it harder to find cancer on a ma mmogram. Also, dense breast tissue may increase their breast cancer risk. This information about the result of the mammogram report was provided to the patient to raise their awareness. Use this report when you speak with the patient about their risks for breast cancer, which includes their family hist ory. At that time, you may recommend for more screening tests (Ultrasound or MRI) as they might be us eful based on their risk. A negative radiographic report should not delay biopsy if a dominant or clinically suspicious mass is present. Up to ten percent of cancers are not identified on mammography. A negative report may reinforce clinical impression. Adenosis and dense breasts may obscure an underlying neoplasm. False positive reports average 6 to 10%. Patient will receive a letter notifying them of these results.
== END ==
PROVIDERS: PCP Nurse Practitioner Family; Visit Provider Nurse Practitioner Family
DX: Z12.31 Encounter for screening mammogram for malignant neoplasm of breast (principal)
CPT/HCPCS: 77063; 77067

== ENCOUNTER → 2023-04-04 02:07 | Outpatient (CLI) | payer OTHER, SELFPAY ==
--- NOTE | 2023-04-04 | DI.MAMMO_ITS ---
Exam(s) MG MAMMO SCREEN CALL BACK UNI US BREAST RT LIMITED EXAM: MG MAMMO SCREEN CALL BACK UNI and U/S breast RT limited CLINICAL HISTORY: FOCAL ASYMMETRIC AREA 7 CM FROM NIPPLE RT BREAST R92.8 ABNL MAMMO. TECHNIQUE: Craniocaudal and mediolateral oblique Full Field Digital Mammography views of the right b reast with Computer Aided Diagnosis followed by Tomosynthesis and right breast ultrasound. COMPARISON: Comparison is made with prior examinations. FINDINGS: Mammography/Tomosynthesis: Masses/Architectural Distortion: The area identified on the screening mammogram, does not persist on the additional views. No suspicious masses or areas of architectural distortion are seen. Microcalcifictions: No suspicious pleomorphic-type are seen. Skin Thickening/Nipple Retraction: None. Limited right breast US: Echotexture: Normal appearance of the glandular tissue. Shadowing: No suspicious foci. Cyst: There is a cluster of cysts at the 11 o'clock position of the right breast 6 cm from the nipple measuring 0.6 x 0.4 x 0.6 cm. There is a 2nd cluster of cysts seen at the 2 o'clock position 6 cm f rom the nipple measuring 0.6 x 0.3 x 0.7 cm. Solid lesions: None seen. Ductal dilation: None. IMPRESSION: 1. No evidence of malignancy is noted. 2. Unless there is more urgent need, follow-up screening mammography is recommended, as per [place] [employer] guidelines. 3. The findings were discussed with the patient on the date of the examination. BI-RADS Category 2 - Benign Findings Breast Density - Category B - Scattered areas of fibroglandular density Breast density Category C or D implies that the patient has dense breast tissue. Dense breast tissue can make it harder to find cancer on a mammogram. Dense breast tissue is also associated with an incr eased risk of breast cancer. This information about the result of the mammogram report was provided to the patient to raise their awareness. Use this report when you speak with the patient about their risks for breast cancer, which includes their family history. At that time, you may recommend additional screening tests (Ultrasoun d or MRI) as these tests may add significant information. A negative radiographic report should not delay biopsy if a dominant or clinically suspicious mass is present. Up to ten percent of cancers are not identified on mammography. A negative report may reinforce clinical impression. Adenosis and dense breasts may obscure an underlying neoplasm. False positive reports average 6 to 10%. Patient will receive a letter notifying them of these results.
== END ==
LOC: DI 02:07
PROVIDERS: PCP Nurse Practitioner Family; Visit Provider Nurse Practitioner Family
DX: Z12.31 Encounter for screening mammogram for malignant neoplasm of breast (principal); R92.323 Mammographic fibroglandular density, bilateral breasts; R92.8 Other abnormal and inconclusive findings on diagnostic imaging of breast; N60.11 Diffuse cystic mastopathy of right breast
CPT/HCPCS: 76642; 77063; 77067

== ENCOUNTER 2023-04-24 15:50 | Outpatient (CLI) | payer OTHER, MEDICAID, SELFPAY ==
--- NOTE | 2023-04-24 14:00 | DI.RAD_ITS ---
Exam(s) XR ELBOW RT LIMITED EXAM: XR ELBOW RT LIMITED CLINICAL HISTORY: fall/pain. TECHNIQUE: 2D digital imaging was performed. COMPARISON: No exams were available for comparison FINDINGS: Two views. No evidence of fracture nor joint effusion and there is no swelling of the olecranon bursa. Radial h ead and neck appear unremarkable. Epicondyles unremarkable. No radiopaque loose intra-articular bod ies. IMPRESSION: No significant osseous findings on these two views of the right elbow. DATA REPOSITORY: RADIATION DOSE DELIVERED:
--- NOTE | 2023-04-24 14:00 | DI.RAD_ITS ---
Exam(s) XR WRIST RT LIMITED EXAM: XR WRIST RT LIMITED CLINICAL HISTORY: fall/pain. TECHNIQUE: 2D digital imaging was performed. COMPARISON: DX Wrist RT from 03/31/2023 FINDINGS: 3 views No evidence of fracture or dislocation nor significant ulnar variance. Scaphoid and scapholunate dis tance normal. Bone density normal. No osseous lesions. No erosions. No radiopaque foreign body. IMPRESSION: No significant osseous findings. DATA REPOSITORY: RADIATION DOSE DELIVERED:
== END 2023-04-24 15:51 | disposition home or self-care (01) ==
LOC: DIORS 15:50
PROVIDERS: PCP Nurse Practitioner Family; Visit Provider Physician Assistant
DX: W19.XXXA Unspecified fall, initial encounter (principal); M25.521 Pain in right elbow
CPT/HCPCS: 73070; 73100

== ENCOUNTER 2023-05-24 13:49 | Outpatient (REF) | payer MEDICAID, SELFPAY ==
[2023-05-24 14:13] LABS: Bilirubin Negative (Negative); Blood Negative (Negative); Clarity Cloudy (Clear); Glucose Negative (Negative); Ketones Negative (Negative); Leukocyte Esterase Negative (Negative); Nitrite Negative (Negative); Specific Gravity >= 1.030 (1.005-1.025); Urobilinogen 0.2 mg/dL (Up to 0.2); pH 5.5 (5-8)
[2023-05-24 15:14] LABS: COMMENT (LAB VIEW ONLY) 182.64 mg/dL; Microalb ug/mg Crea 6.7 ug/mg Cr
== END 2023-05-24 13:50 | disposition home or self-care (01) ==
LOC: NCHCN 13:49
PROVIDERS: PCP Nurse Practitioner Family; Visit Provider Nurse Practitioner Family
DX: I10 Essential (primary) hypertension (principal); R82.998 Other abnormal findings in urine
CPT/HCPCS: 81003; 82043; 82570

== ENCOUNTER 2023-05-29 22:13 | Outpatient (REF) | payer MEDICAID, SELFPAY ==
[2023-05-29 16:20] LABS: Calculated LDL 219 mg/dL (<100); Cholesterol 311 mg/dL (<200); HDL Cholesterol 61 mg/dL (40-60); Triglyceride 157 mg/dL (<150)
== END 2023-05-29 22:14 | disposition home or self-care (01) ==
LOC: NCHCN 22:13
PROVIDERS: PCP Nurse Practitioner Family; Referring Provider Nurse Practitioner Family; Visit Provider Nurse Practitioner Family
DX: R35.89 Other polyuria (principal); E78.5 Hyperlipidemia, unspecified
CPT/HCPCS: 80061; 83036

== ENCOUNTER 2024-03-10 16:39 | Outpatient (REF) | payer MEDICAID, SELFPAY ==
[2024-03-10 15:16] LABS: Bilirubin Negative (Negative); Blood Trace-intact (Negative); Clarity Clear (Clear); Glucose Negative (Negative); Ketones Negative (Negative); Leukocyte Esterase Negative (Negative); Nitrite Negative (Negative); Urobilinogen 0.2 mg/dL (Up to 0.2)
[2024-03-10 15:22] LABS: RBC 0-2 HPF (0-2); WBC Negative HPF (0-5)
[2024-03-10 15:23] LABS: Bacteria Rare HPF (Negative); C & S Indicated? No; Casts Negative LPF (Negative); Crystals Negative HPF (Negative); Epithelial Cells Negative HPF (Negative); Mucus Negative (Negative); Other Cells Negative (Negative)
[2024-03-10 15:42] LABS: ALT 24 U/L (14-59); AST 15 U/L (15-37); Albumin 3.8 g/dL (3.4-5.0); Alkaline Phosphatase 123 U/L (46-116); BUN 14 mg/dL (7-18); Bilirubin, Total 0.33 mg/dL (0.2-1.0); CREATININE 0.8 mg/dL (0.55-1.02); Calcium 9.7 mg/dL (8.5-10.1); Calculated LDL 227 mg/dL (<100); Chloride 104 mmol/L (98-107); Cholesterol 318 mg/dL (<200); Estimated GFR 86.96 (mL/min/1.73m2); Ferritin 65 ng/mL (8-252); Glucose 103 mg/dL (74-106); HDL Cholesterol 58 mg/dL (40-60); Potassium 4.3 mmol/L (3.5-5.1); Sodium 142 mmol/L (136-145); TSH 2.18 uIU/mL (0.36-3.74); Total Protein 7.5 g/dL (6.4-8.2); Triglyceride 168 mg/dL (<150); Vitamin D 25 Total 32.4 ng/mL (30-100)
[2024-03-10 15:53] LABS: Iron 58 ug/dL (50-170); Total Iron Binding Capacity 376 ug/dL (250-450); Transferrin Sat 15 % (15-50)
[2024-03-10 16:00] LABS: C-Reactive Protein 1.32 mg/dL (<or=0.5); FREE T4 0.87 ng/dL (0.76-1.46)
[2024-03-10 16:32] LABS: Microalb ug/mg Crea 8.7 ug/mg Cr
--- OUTSIDE RECORDS SUMMARY | 2024-03-10 16:44 | XMS_ITS | Clinical Summary ---
Author Organization [facility] Address [facility] [place] [address] Care Team Providers Care Gelatin Plant Supervisor Name Role Phone Camelia Larose APRN Primary Care Provider [phone] Allergies Active Allergy Reactions Criticality Noted Date Comments Fluconazole 03/28/2013 Medications Medication Sig Dispensed Refills Start Date End Date Status buPROPion (WELLBUTRIN) 100 mg tablet Take 100 mg by mouth 2 times daily. Active amitriptyline (Elavil) 10 mg Tablet Take 10 mg by mouth nightly. 07/04/2021 Active Acetylcysteine 600 mg Capsule TAKE 2 CAPSULE BY MOUTH TWICE DAILY 07/20/2021 Active FLUoxetine (PROzac) 40 mg Capsule Take 40 mg by mouth daily. 08/11/2021 Active ibuprofen (Advil) 800 mg Tablet Take 800 mg by mouth 3 times daily as needed. 06/29/2021 Active Active Problems Problem Noted Date Diagnosed Date Family history of nonmelanoma skin cancer 2013 Seborrheic keratosis 03/28/2013 Angioma 03/28/2013 Skin tag 03/28/2013 Atypical nevi 03/28/2013 Family History Medical History Relation Comments Skin Cancer Father Relation Status Comments Father Social History Tobacco Use Types Packs/Day Years Used Date Smoking Tobacco: Never Overall Financial Resource Strain (CARDIA) Answe r Date Recorded How hard is it for you to pa y for the very basics like food, housing, medical care, and heating? Not very hard 10/17/2021 Hunger Vital Sign Answer Date Recorded Within the past 12 months, y ou worried that your food would run out before you got the money to buy more. Never true 10/18/19 22 Within the past 12 months, t he food you bought just didn't last and you didn't have money to get more. Never true 10/17/2021 PRAPARE - Transportation Answer Date Re corded In the past 12 months, has l ack of transportation kept you from medical appointments or from getting medications? No 10/03 In the past 12 months, has l ack of transportation kept you from meetings, work, or from getting things needed for daily living? No 10/17/2021 Housing Stability Vital Sign Answer Deepak e Recorded In the last 12 months, was t here a time when you were not able to pay the mortgage or rent on time? Yes 10/17/2021 In the last 12 months, how many places have you lived? 2 10/17/2021 In the last 12 months, was t here a time when you did not have a steady place to sleep or slept in a longterm (including now)? No 10/17/2021 Sex and Gender Information Value Date Recorded Sex Assigned at Not on file Gender Identity Not on file Sexual Orientation Not on file Last Filed Vital Signs Vital Sign Reading Time Taken Comments Blood Pressure 135/69 10/17/2021 8:12 AM EDT Pulse 84 10/17/2021 8:12 AM EDT Temperature 35.7 ??C (96.2 ??F) 10/17/2021 8:12 AM ED T Respiratory Rate 16 10/17/2021 8:12 AM EDT Oxygen Saturation 99% 10/17/2021 8:12 AM EDT Inhaled Oxygen Concentration - - Weight 107.4 kg (236 lb 12.8 oz) 10/17/2021 8:12 AM EDT Height 155.5 cm (5' 1.22) 10/17/2021 8:12 AM ED T Body Mass Index 44.42 10/17/2021 8:12 AM EDT Plan of Treatment Health Maintenance Due Date Last Done Comments CT Colonography 1968 Colonoscopy 1968 Colorectal Cancer Screening 1968 FIT DNA 1968 FIT 1968 Sigmoidoscopy (10 year) with FIT yearly 1968 Sigmoidoscopy 1968 HIV screen 1986 Hepatitis C Screening 1986 Lipid Screening 1986 Hepatitis B vaccine (0-59 yrs) (1) 10/04/1987 Tetanus/Diphtheria/Pertussis Vaccines (1 - Tdap) 10/03 HPV test 1998 PAP Smear 1998 Breast Cancer Share Decision Needed 2008 Breast Cancer screening 2008 Diabetes Screening (HgbA1C or Glucose) 2008 Zoster vaccine (1 of 2) 2018 Advance Directive 10/04/2023 Covid-19 Vaccine ( - season) 2023 Influenza (Flu) vaccine (1 o f 1 - Influenza standard series) 11/04/2023 Care Teams Gelatin Plant Supervisor Relationship Specialty Start Date End Date Camelia Larose APRN [address] [place] [address] PCP - General Family Medicine 10/17/21
--- OUTSIDE RECORDS SUMMARY | 2024-03-10 16:45 | XMS_ITS | Referral Summary ---
Author Organization [facility] Address [address] [place] [address] Care Team Providers Care Csr Retail Name Role Phone Unknown, Provider Primary Care Provider Unava ilable Social History Tobacco Use Types Packs/Day Years Used Date Smoking Tobacco: Never Assessed Interpersonal Safety Answer Date Record ed Physically Hurt Never 10/06/2019 Verbally Threaten Not on file 10/06/2019 Comments Unknown Sex and Gender Information Value Date Recorded Sex Assigned at Not on file Legal Sex Female 8:15 EDT Gender Identity Not on file Sexual Orientation Not on file Plan of Treatment Not on file Insurance [facility] Care Teams Csr Retail Relationship Specialty Start Date End Date Unknown, Provider, PCP - General 06/07/16
--- OUTSIDE RECORDS SUMMARY | 2024-03-10 16:45 | XMS_ITS | Encounter Summary ---
Author Organization [facility] Address [facility] [place] [address] Care Team Providers Care Associate Justice Name Role Phone Vanessa Diaz APRN Primary Care Provider [phone] Reason for Visit * Reason Comments Skin Check Would like a upper b sarika skin check. concerned with dry patch on back that she has had for about 18 months. Encounter Details Date Type Department Care Team (Late st Contact Info) Description 03/28/2013 2:00 PM EST Office Visit Dermatology at [address] [id number] Seble Alejandro, DO [address] [place] [address] Family history of nonmelanoma skin cancer (Primary Dx); Seborrheic keratosis; Angioma; Skin tag; Atypical nevi Social History Tobacco Use Types Packs/Day Years Used Date Smoking Tobacco: Never Sex and Gender Information Value Date Recorded Sex Assigned at Not on file Gender Identity Not on file Sexual Orientation Not on file documented as of this encounter Progress Notes * Seble Alejandro DO - 03/28/2013 2:07 PM EST PAST PROBLEMS: 1. 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 Would like a upper body skin check. Concerned with dry patch on back that she has had for about 18 months. Noticed growth but never bleeds. Has a few spots on her face and body she would like checked as well - has a dark brown lesionon the L abdomen that she has been monitoring without any changes/growth She denies personal history of skin cancer. Father with hx of nonmelanoma. + history of blistering sunburns in the past. Skin medications: none Pertinent history, medications, and allergies have been reviewed and updated where appropriate. Patient feels well, no fatigue, no other skin concerns. OBJECTIVE: A complete skin exam was performed including the scalp, head and neck, conjunctiva, oral mucus membranes, trunk, arms, hands,legs, feet, nails, is significant for: -Pleasant, awake, alert, and oriented x3 -Well developed, well nourished female in no active distress. -Head and Scalp clear, oral mucosa pink and moist -Conjunctiva and lids normal -Skin type II -Left lower back 9mm keratotic papule -Scattered brown and mckeon scaly keratotic papules on the back -Scattered fleshy nevi on back -Mid glabella 6mm dome shaped papule with telangiectasias -multiple red-pink angiomatous papules -Left lower abdomen fuzzy brown 6mm macule - patient reports it has not changed in over 5 years -legs and feet are clear ASSESSMENT/PLAN: Alternatives, risks, benefits, and outcomes discussed for: 1. SK's - back and trunk -benign reassurance, continue to monitor. 2. Skin tags Irritated Skin tags -discussion that sometimes these are not covered by insurance co. Depending on the plan - Pt is aware that may have greater out of pocket expense -Recommend checking with insurance for possible removal in the future 3. Angiomas -benign reassurance, continue to monitor. 4. Mildly atypical Nevi: left lower abdomen -reviewed my impressions with the pt -offered options including removal for dermatopathologic evaluation vs. Clinical montitoring over time. ABCDs reviewed in detail. -Will continue to monitor 5. Otherwise benign skin check today - nothing suspicious to Bx Follow up in approximately PRN Notation initiated by KEISHA SANABRIA LPN, and directed, reviewed and edited by Dr.Jennifer Alejandro. documented in this encounter Plan of Treatment Not on file documented as of this encounter Visit Diagnoses Diagnosis Family history of nonmelanoma skin cancer- Primary Family history of skin conditions Seborrheic keratosis Other seborrheic keratosis Angioma Hemangioma of unspecified site Skin tag Unspecified hypertrophic and atrophic condition of skin Atypical nevi Benign neoplasm of skin, site unspecified documented in this encounter Care Teams Associate Justice Relationship Specialty Start Date End Date Vanessa Diaz APRN [facility] [address] [place] [address] PCP - General 03/28/13 10/16/21 documented as of this encounter
--- OUTSIDE RECORDS SUMMARY | 2024-03-10 16:45 | XMS_ITS | Clinical Summary ---
Author Organization [facility] Address [address] [place] [address] Care Team Providers Care Coremaker Bench Name Role Phone Unknown, Provider Primary Care [...] Orientation Not on file Plan of Treatment Health Maintenance Due Date Last Done Comments Hepatitis C Screen 1968 Hepatitis B Vaccine (1 of 3 - 19+ 3-dose series) 10/03 COVID-19 Vaccine ( season) [address] [facility] Care Teams Coremaker Bench Relationship Specialty Start Date End Date Unknown, Provider, PCP - General 06/07/16
--- OUTSIDE RECORDS SUMMARY | 2024-03-10 16:45 | XMS_ITS | Encounter Summary ---
Author Organization Health system Address [address] [place] [address] Care Team Providers Care Awnings Mechanic Name Role Phone Unknown, Provider Primary Care Provider Unava ilable Encounter Details Date Type Department Care Team (Late st Contact Info) Description 02/07/2023 Lab Requisition [facility] Pathology & Laboratory Medicine - [facility] [address] [place] [address] Ines Eagle [address] [place] [address] [place] [address] Encounter for other general examination Social History Tobacco Use Types Packs/Day Years [...] on file documented as of this encounter Plan of Treatment Not on file documented as of this encounter Procedures Procedure Name Priority Date/Time Associated Diagnosis Comments SURGICAL PATHOLOGY Today 02/07/2023 8: 37 EST Encounter for other general examination documented in this encounter Results * SURGICAL PATHOLOGY (02/07/2023 8:37 EST) Note to Patient The following pathology results have been interpreted by your pathologist and may be available to you before your health provider has had the opportunity to review them. Please allow time for your provider to receive these results and explore management options, if applicable. 02/12/2023 15:44 EST [facility] Final Diagnosis A. ENDOCERVIX, CURETTAGE: - Benign endocervical and squamous mucosa. B. ENDOMETRIUM, CURETTAGE: - Fragments of endometrial polyp. - Benign squamous mucosa and endocervical mucosa with squamous metaplasia. - No cytologic atypia identified. 02/12/2023 15:44 [facility] Attestation There was significant resident/fellow involvement in the diagnostic evaluation of this case. By the signature below, the attending physician certifies that they have personally conducted a gross and/or microscopic examination of the described specimens and rendered or confirmed the above diagnosis. 02/12/2023 15:44 [facility] at 1544 Clinical History Endocervical polyp, thickened endometrium, postmenopausal bleeding 02/12/2023 15:44 [facility] Gross Description A. Received in formalin labelled with proper patient identification (initials L, P) and 1. Endocervical curettings is an aggregate of blood-tinged mucinous material (2.6 x 2.2 x 0.6 cm). Entirely submitted in A1-A2. B. Received in formalin labelled with proper patient identification (initials L, P) and 2. Endometrial curettings is an aggregate of scant pollard tissues and admixed opaque white to blood-tinged mucinous material and blood clot (3.9 x 3.1 x 0.5 cm). Entirely submitted in B1-B3. Jeny Martin 02/08/2023 12:37 02/12/2023 15:44 [facility] Resident/Jaskaran w: Johan Amaro MD 02/12/2023 15:44 [facility] Performing Lab [facility] 02/12/2023 15:44 [facility] Scanned Images 02/12/2023 15:44 [facility] Tissue ENDOMETRIAL STRUCTURE / Unknown 02/07/2023 8:37 EST 02/07/2023 16:36 EST Tissue specimen (specimen) ENDOMETRIAL STRUCTURE / Unknown 02/07/2023 8:37 EST 02/07/2023 16:36 EST [facility] PATHOLOGY ORDERABLES Final Resul t [facility] [address] [place] [address] documented in this encounter Visit Diagnoses Diagnosis Encounter for other general examination documented in this encounter Care Teams Awnings Mechanic Relationship Specialty Start Date End Date Unknown, Provider, PCP - General 06/07/16 documented as of this encounter
--- OUTSIDE RECORDS SUMMARY | 2024-03-10 16:45 | XMS_ITS | Encounter Summary ---
Author Organization [facility] Address [facility] [place] [address] Care Team Providers Care Human Services Professional Name Role Phone Camelia Larose APRN Primary Care Provider [phone] Reason for Visit * Reason Comments Advice Only * Consultation (Routine) - Closed Specialty Diagnoses / Procedures Referred By Contac t Referred To Contact Hematology and Oncology Diagnoses Thrombocytosis Camelia Larose APRN [address] [place] [address] [facility] [address] [place] [address] Referral ID Status Reason Start Date Expiration Date V isits Requested Visits Authorized [id number] Closed Consult, Test & Treat 08/31/2021 08/31/2022 1 1 Encounter Details Date Type Department Care Team (Late st Contact Info) Description 10/17/2021 8:15 AM EDT Office Visit Hematology [place] [address] John Blackwell MD [facility] [address] [place] [address] Estella August MD Thrombocytosis Social History Tobacco Use Types Packs/Day Years [...] place to sleep or slept in a long term (including now)? No 10/17/2021 Sex and Gender Information Value Date Recorded Sex Assigned at Not on file Gender Identity Not on file Sexual Orientation Not on file documented as of this encounter Last Filed Vital Signs Vital Sign Reading [...] Mass Index 44.42 10/17/2021 8:12 AM EDT documented in this encounter Progress Notes * Estella August MD - 10/17/2021 8:15 AM EDT Images from the original note were not included[place] [address] NEW PATIENT EVALUATION Patient Active Problem List Diagnosis ??? Family history of nonmelanoma skin cancer ??? Seborrheic keratosis ??? Angioma ??? Skin tag ??? Atypical nevi HISTORY OF PRESENT ILLNESS: It was my pleasure to meet Yodit Darby today. Yodit Darby is a 51 y.o. year old female being seen for evaluation of thrombocytosis. she is referred in consultation from Camelia Larose APRN. She states she's been under a lot of stress over the past 2 years, stating she lost both her parents. She's never had any DVT/PE,CVA, or other thrombi. She is perimenopausal, she states her last period was April 2021. She states her periods have gotten more heavy as she got older. During this time, she was diagnosed with TISH and was taking oral iron supplementation. She stopped supplementation~1 year ago. Has headaches chronically but improved since starting PT. No acute changes in vision. No erythromelalgia. PMHX: TISH Hx of Vit D deficiency Multinodular thyroid, monitored by PCP PSHX: 2 Cholecystectomy Fibroids removed ROS No fevers, chills. No headaches. No vision changes. No other bleeding/bruising. No SOB, Cough. No CP. + GERD, better with famotidine No N/V/abd pain. No diarrhea/constipation. No Dizziness or lightheadedness. MEDS: Multivitamin Vitamin D Glucosamine supplement Antihistamine Prozac Amitriptyline Allergies: Allergies Allergen Reactions ??? 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 Body surface area is 2.15 meters squared. GENERAL: Yodit Darby appears well and is in no acute distress. ENT: Oral pharynx clear. EYES: no scleral icterus NECK: Supple without adenopathy. AXILLARY: no adenopathy OTHER LYMPH: no adenopathy CARDIAC: Regular rate and rhythm without S3,S4 or murmurs. LUNGS: Clear to auscultation./percussion ABDOMEN: Soft and non-tender without hepatosplenomegaly or masses. EXTREMITIES: No edema SKIN: No bruises or petechiae. NEUROLOGICAL: Alert and oriented to person, place and time. LABORATORY STUDIES 08/02/21 JAK2 mutation negative Vit D 25 17.4 (insufficient) 07/04/21 12/17/20 Iron 70 TIBC 366 TSAT 19% 12/17/20 PATHOLOGY: none RADIOLOGY STUDIES REVIEWED: None ASSESSMENT/PLAN: Yodit Darby is a very pleasant 51 y.o. female referred by Camelia Larose APRN for thrombocytosis. We received two CBCs (from July 2021 and December 2020) which revealed a plt ct of 439 and 417k, respectively. JAK2 mutation was sent in July 2021 and was negative. No CVA or DVT/PE. Other 2 blood cell lines are normal. I reviewed the differential for isolated thrombocytosis: 1) primary disorders of hematopoiesis such as myeloproliferative neoplasms (CML, ET, MF etc) or MDS/MPN disorders etc, or 2) secondary/reactive causes such as iron deficiency, acute blood loss, infections,inflammatory conditions such as rheumatological disorders vasculitis, IBD, celiac disease, etc.., stress full situations such as exercise, hospitalization, post surgery, trauma, rebound effect from ETOH, rebound effect from treatment of ITP, surgical/functional asplenia etc. In Yodit's situation, she states she's been under an incredible amount of stress in the past coupleof years due to her parents passing (especially her mother passing unexpectedly) and stress due to work. Additionally, she has a history of TISH and states she stopped taking iron in December 2020. We did not receive ferritin level from her iron studies in December but would recommend checking ferritin during her next regularly scheduled lab work and if less than 30, replace with oral iron. Given her low risk factors, age, and minimally elevated platelet count, we don't have a high suspicion of a primary hematopoietic disorder. We discussed a bone marrow biopsy would be the workup needed to effec tively rule out a primary bone marrow abnormality and we agreed an invasive procedure like a marrowbiopsy is not warranted at this time. Plan: ?? Continue monitoring platelet ct with regular blood work ?? Would check ferritin with regular blood work, if ferritin <30, replace with oral iron ?? Can consider further testing if platelet ct >600K but given her current age and risk factors,she wouldn't need treatment unless her platelet counts were considerably higher than that. I discussed all of the above with the patient and all of her questions were answered. Support and counseling given as appropriate. If platelets >600K or if Yodit develops other symptoms concerning for MPN, we are happy to see her again in the future. Copy MARIA VICTORIA Richard MD Hematology/Oncology Fellow Pager [phone] 10/17/21 I saw this patient with Dr August I agree with the details of History and Physical Exam as documented in the above note. I was present for the critical portions of the history, exam and discussion ofour recommendations. 51-year-old female referred to us because of mild elevation of her platelet count. She does have a history of iron deficiency. Her impression is that this is likely a reactive thrombocytosis possibly on the basis of iron deficiency. Would not work-up further unless her platelet progressively increases to over 600,000. It would be reasonable to screen her with a ferritin and if her ferritin is less than 30 to consider further iron replacement which may resolve her thrombocytosis. Please see above note for full details. documented in this encounter Plan of Treatment Not on file documented as of this encounter Visit Diagnoses Diagnosis Thrombocytosis Essential thrombocythemia documented in this encounter Care Teams Human Services Professional Relationship Specialty Start Date End Date Camelia Larose APRN [address] [place] [address] PCP - General Family Medicine 10/17/21 documented as of this encounter
--- OUTSIDE RECORDS SUMMARY | 2024-03-10 16:45 | XMS_ITS | Encounter Summary ---
Author Organization [facility] Address [address] [place] [address] Care Team Providers Care Automobile Body Repair Supervisor Name Role Phone Unknown, Provider Primary Care Provider Unava ilable Encounter Details Date Type Department Care Team (Late st Contact Info) Description 04/15/2019 Lab Requisition [facility] Pathology & Laboratory Medicine - [address] [address] Unknown, Provider, Social History Tobacco Use Types Packs/Day Years Used Date Smoking Tobacco: Never Assessed Comments Unknown Sex and Gender Information Value Date Recorded Sex Assigned at Not on file Legal Sex Female 8:15 EDT Gender Identity Not on file Sexual Orientation Not on file documented as of this encounter Plan of Treatment Not on file documented as of this encounter Procedures Procedure Name Priority Date/Time Associated Diagnosis Comments T3 FREE Routine 04/15/2019 9:35 EST documented in this encounter Results * T3 FREE (04/15/2019 9:35 EST) T3, Free 3.1 2.8 - 5.3 pg/mL 04/15/2019 17:08 EST [facility] Blood VENOUS BLOOD / Unknown 04/15/2019 9:35 EST 04/15/2019 16:41 EST us Provider Unknown CHEMISTRY & BLOOD GAS ORDERA BLES Final Result [facility] [address] [place] [address] documented in this encounter Visit Diagnoses Not on filedocumented in this encounter Care Teams Automobile Body Repair Supervisor Relationship Specialty Start Date End Date Unknown, Provider, PCP - General 4/5/17 documented as of this encounter
--- OUTSIDE RECORDS SUMMARY | 2024-03-10 16:45 | XMS_ITS | Encounter Summary ---
Author Organization [facility] Address [address] [place] [address] Care Team Providers Care Telecommunications Professional Name Role Phone Unknown, Provider Primary Care Provider Unava ilable Encounter Details Date Type Department Care Team (Late st Contact Info) Description 06/05/2016 Results Only [facility] [phone] Lennox Cardona, DESKTOP ARCHITECT [address] [place] [id number] Social History Tobacco Use Types Packs/Day Years [...] Procedure Name Priority Date/Time Associated Diagnosis Comments PAP TEST- RESULT ONLY Routine 06/05/2016 0:00 EDT documented in this encounter Results * PAP TEST- RESULT ONLY (06/05/2016 0:00 EDT) Pathology Report: CYTOPATHOLOGY REPORT Reports generated via electronic interface contain original data; however they are lacking the format of the original report. Caution should be taken when reading/interpreti ng unformatted reports. Name: ? YODIT ESCALONA ? Accession #: ? [id number] ? : ? 1970 (Age: 45) ??F ?Collect Date: ? 06/05/2016 ? Location: ? [facility] ? Receive Date: ? 06/07/2016 ? Provider: LENNOX CARDONA DESKTOP ARCHITECT Copy to: ? Final Report SPECIMEN ADEQUACY ? Satisfactory for Evaluation - transformation zone component present GENERAL CATEGORIZATION ? Negative for Intraepithelial Lesion or Malignancy ?? Last Menstrual Period: 05/22/2016 Hormonal/Contracep tive status: Tubal ligation Hormone Replacement Therapy: none Previous Gynecologic Pathology: HPV: in college Specimen/Source: ??Pap Test, Endocervix, ThinPrep Imaging System with manual evaluation Document reviewed and electronically signed by: ? HERMILA Kilgore(ASCP) ? Report ??Date: 06/09/2016 15:07 HPV with Pap Test ? Date Ordered: ? 06/09/2016 ? Status: ?? Signed Out ?Date Complete: ? 06/12/2016 ? By: ??System Interface ? Date Reported: ? 06/12/2016 ? Interpretation RESULT: Negative for HPV. No E6 or E7 mRNA is detected from HPV types 16,18,31,33,35, 39,45,51,52,56,58, 59,66, and 68 by bundle tier mediated amplification. Comments Document reviewed and electronically signed by: ? System Interface ? Report date: 06/12/2016 By the signature above, the attending physician certifies that he/she has personally conducted a gross and/or microscopic examination of the described specimens and rendered or confirmed the above diagnosis. End of Report [facility] 06/05/2016 06/07/2016 us Lennox Cardona DESKTOP ARCHITECT PATHOLOGY ORDERABLES Vandana verdin Result [facility] [address] [place] [address] documented in this encounter Visit Diagnoses Not on filedocumented in this encounter Care Teams Telecommunications Professional Relationship Specialty Start Date End Date Unknown, Provider, PCP - General 06/07/16 documented as of this encounter
--- OUTSIDE RECORDS SUMMARY | 2024-03-10 16:45 | XMS_ITS | Encounter Summary ---
Author Organization [facility] Address [address] [place] [address] Care Team Providers Care Crabber Name Role Phone Unknown, Provider Primary Care Provider Unava ilable Encounter Details Date Type Department Care Team (Latest Contact Info) Description 01/04/2022 Lab Requisition [facility] Pathology & Laboratory Medicine - [facility] [address] [place] [address] Camelia Larose, STRATEGIC CLIENT EXECUTIVE [address] [address] Encounter for general adult medical examination without abnormal findings; Encounter for gynecological examination (general) (routine) without abnormal findings; Encounter for screening for malignant neoplasm of cervix Social History Tobacco Use Types Packs/Day Years [...] Name Priority Date/Time Associated Diagnosis Comments PAP TEST Today 01/03/2022 8:45 EDT Encounter for general adult medical examination without abnormal findings Encounter for gynecological examination (general) (routine) without abnormal findings Encounter for screening for malignant neoplasm of cervix HPV DNA DETECTION WITH GENOTYPING, PCR Today 01/03/2022 8:45 EDT Encounter for general adult medical examination without abnormal findings Encounter for gynecological examination (general) (routine) without abnormal findings Encounter for screening for malignant neoplasm of cervix documented in this encounter Results * HUMAN PAPILLOMAVIRUS (HPV) DETECTION-HIGH RISK TYPES (01/03/2022 8:45 EDT) HPV other High Risk types, PCR Negative Negative 01/18/2022 14:59 [facility] Comment:No E6 or E7 mRNA is detected from HPV types 16,18,31,33,35,39,45,51,52,56,58,59,66, and 68 by plunger scoop operator mediated amplification. Papanicolaou smear specimen (specimen) CERVIX UTERI STRUCTURE / Unknown 01/03/2022 8:45 EDT 01/12/2022 15:21 EST Camelia Larose STRATEGIC CLIENT EXECUTIVE MICROBIOLOGY - GENERAL OR DERABLES Final Result [facility] [address] [place] [address] * PAP TEST (01/03/2022 8:45 EDT) Specimens A. Cervix and/or Endocervix , ThinPrep Imaging System with Manual Evaluation 01/18/2022 14:59 [facility] Specimen Adequacy Satisfactory for Evaluation - transformation zone component present 01/18/2022 14:59 [facility] General Categorization Negative for intraepithelial lesion or malignancy 01/18/2022 14:59 [facility] Attestation . 01/18/2022 14:59 [facility] at 1459 Clinical History See below 01/19/20 14:59 [facility] HPV The result for the Human Papillomavirus (HPV) Detection-High Risk Types is Negative. No E6 or E7 mRNA is detected from HPV types 16,18,31,33,35,39 ,45,51,52,56,58,5 9,66, and 68 by plunger scoop operator mediated amplification.Randi ting was performed on specimen [id number] and was resulted on 01/18/2022 1422 EST by ZECHARIAH, LAB INSTRUMENT RESULTS IN 01/18/2022 14:59 EST [facility] Performing Lab [facility] 01/18/2022 14:59 EST [facility] Scanned Images 01/18/2022 14:59 EST [facility] Papanicolaou smear specimen (specimen) CERVIX UTERI STRUCTURE / Unknown 01/03/2022 8:45 EDT 01/04/2022 9:46 EDT us Camelia Larose STRATEGIC CLIENT EXECUTIVE PATHOLOGY ORDERABLES Vandana l Result [facility] [address] [place] [address] documented in this encounter Visit Diagnoses Diagnosis Encounter for general adult medical examination without abnormal findings Unspecified general medical examination Encounter for gynecological examination (general) (routine) without abnormal findings Encounter for screening for malignant neoplasm of cervix Screening for malignant neoplasm of the cervix documented in this encounter Care Teams Crabber Relationship Specialty Start Date End Date Unknown, Provider, PCP - General 06/07/16 documented as of this encounter
--- OUTSIDE RECORDS SUMMARY | 2024-03-10 16:45 | XMS_ITS | Encounter Summary ---
Author Organization [facility] Address [address] [place] [address] Care Team Providers Care Supervisor Grove Name Role Phone Unknown, Provider Primary Care Provider Unava ilable Encounter Details Date Type Department Care Team (Late st Contact Info) Description 04/30/[address] [facility] Radiology Results [address] [place], [place] [address] [place] [address] [place] [address] Social History Tobacco Use Types Packs/Day Years [...] Procedure Name Priority Date/Time Associated Diagnosis Comments US THYROID/NECK 04/30/2017 17:25 EST THYROID CASCADE Routine 04/30/2017 16:04 EST documented in this encounter Results * US THYROID/NECK (04/30/2017 17:25 EST) Anatomical Region Laterality Modality Other 04/30/2017 17:2 5 EST Narrative 04/30/2017 17:29 EST ? EXAM: ULTRASOUND/THYROID ?EX. D/ ([id number]) ? CLINICAL INFORMATION: ? E04.2 NONTOXIC MULTINODULAR GOITER ? INDICATION: E04.2 NONTOXIC MULTINODULAR GOITER GOITER, E04.2 ? TECHNIQUE: Thyroid ultrasound imaging was performed. Color flow ? Doppler imaging was obtained. ? COMPARISON: None. ? FINDINGS: The right thyroid lobe measures 4.7 x 1.7 x 2.0 cm in size. ? Within the right thyroid lobe, there is a mid/upper pole cystic focus ? with slight nodularity along the deep wall measuring approximately ? 1.3 x 1.7 x 1.9 cm. The left thyroid lobe measures 4.3 x 1.3 x 1.3 cm ? in size. Within the left thyroid lobe, there is a small isoechoic ? nodule measuring 0.6 x 0.3 x 0.5 cm. The thyroid isthmus measures 2.2 ? mm in thickness. Within the thyroid isthmus, there is a right-sided ? mixed cystic and solid nodule measuring 1.4 x 1.5 x 0.8 cm ? IMPRESSION: ? 1. Multiple thyroid cysts and nodules. This includes a right ? mid/upper pole 1.9 x 1.3 x 1.7 cm cystic lesion with slight ? nodularity along the deep wall. Additional thyroid lesions as ? described above. ? REPORT SIGNED IN OTHER VENDOR SYSTEM 04/30/2017 ?Reported By: Roverto Alcaraz MD ? CC: ? Transcribed Date/Time: 04/30/2017 ([id number]) ? Ivory Carver: ? Printed Date/Time: 08/22/2018 ([id number]) ? PAGE 1 ? Signed Report ? Procedure Note Roverto Alcaraz MD - 01/08/2019 EXAM: ULTRASOUND/THYROID EX. D/ ([id number]) CLINICAL INFORMATION: E04.2 NONTOXIC MULTINODULAR GOITER INDICATION: E04.2 NONTOXIC MULTINODULAR GOITER GOITER, E04.2 TECHNIQUE: Thyroid ultrasound imaging was performed. Color flow Doppler imaging was obtained. COMPARISON: None. FINDINGS: The right thyroid lobe measures 4.7 x 1.7 x 2.0 cm insize. Within the right thyroid lobe, there is a mid/upper pole cysticfocus with slight nodularity along the deep wall measuring approximately 1.3 x 1.7 x 1.9 cm. The left thyroid lobe measures 4.3 x 1.3 x 1.3cm in size. Within the left thyroid lobe, there is a small isoechoic nodule measuring 0.6 x 0.3 x 0.5 cm. The thyroid isthmus measures2.2 mm in thickness. Within the thyroid isthmus, there is a right-sided mixed cystic and solid nodule measuring 1.4 x 1.5 x 0.8 cm IMPRESSION: 1. Multiple thyroid cysts and nodules. This includes a right mid/upper pole 1.9 x 1.3 x 1.7 cm cystic lesion with slight nodularity along the deep wall. Additional thyroid lesions as described above. REPORT SIGNED IN OTHER VENDOR SYSTEM 04/30/2017 Reported By: Roverto Alcaraz MD CC: Transcribed Date/Time: 04/30/2017 ([id number]) Ivory Carver: [facility] Printed Date/Time: 08/22/2018 ([id number]) PAGE 1 Signed Report us Shira Chawla MD [facility] [place] ORDERABLES Final Resul t * THYROID CASCADE (04/30/2017 16:04 EST) TSH 1.32 0.46 - 4.68 uIU/mL 04/30/2017 17:52 EST [facility] 04/30/2017 16:0 4 EST 04/30/2017 16:04 EST Narrative [facility] - 04/30/2017 17:52 EST Does PT Have a Latex Allergy? YES us Shira Chawla MD CHEMISTRY & BLOOD GAS ORDERAB LES Final Result [facility] documented in this encounter Visit Diagnoses Not on filedocumented in this encounter Care Teams Supervisor Grove Relationship Specialty Start Date End Date Unknown, Provider, PCP - General 06/07/16 documented as of this encounter
--- OUTSIDE RECORDS SUMMARY | 2024-03-10 16:45 | XMS_ITS | Encounter Summary ---
Author Organization [facility] Address [address] [place] [address] Care Team Providers Care Brim Stiffener Name Role Phone Unknown, Provider Primary Care Provider Unava ilable Encounter Details Date Type Department Care Team (Latest Contact Info) Description 04/30/2017 14:51 EST - 04/30/2017 23:59 EST Hospital Encounter [facility] [address] [place] [address] Unknown, Provider, Discharge Disposition: Home or Self Care Social History Tobacco Use Types Packs/Day Years Used Date Smoking Tobacco: Never Assessed Comments Unknown Sex and Gender Information Value Date Recorded Sex Assigned at Not on file Legal Sex Female 8:15 EDT Gender Identity Not on file Sexual Orientation Not on file documented as of this encounter Discharge Disposition Disposition Code Departure Means Destination Home or Self Nursing Home documented in this encounter Plan of Treatment Not on file documented as of this encounter Visit Diagnoses Not on filedocumented in this encounter Care Teams Brim Stiffener Relationship Specialty Start Date End Date Unknown, Provider, PCP - General 06/07/16 documented as of this encounter
--- OUTSIDE RECORDS SUMMARY | 2024-03-10 16:45 | XMS_ITS | Encounter Summary ---
[place] [address] Care Team Providers Care Polisher Aluminum Name Role Phone Vanessa Diaz APRN Primary Care Provider [phone] Reason for Referral * Consultation (Routine) - Closed Specialty Diagnoses / Procedures Referred By Conthilda t Referred To Contact Hematology and Oncology Diagnoses Thrombocytosis Camelia Larose APRN [address] [place] [address] [facility] [address] [place] [address] Referral ID Status Reason Start Date Expiration Date V isits Requested Visits Authorized [id number] Closed Consult, Test & Treat 08/31/2021 08/31/2022 1 1 Encounter Details Date Type Department Care Team (Late st Contact Info) Description 08/31/2021 Transcribe Orders eDH Incoming Referrals [phone] Camelia Larose APRN [address] [place] [address] Thrombocytosis Social History Tobacco Use Types Packs/Day Years Used Date Smoking Tobacco: Never Sex and Gender Information Value Date Recorded Sex Assigned at Not on file Gender Identity Not on file Sexual Orientation Not on file documented as of this encounter Plan of Treatment Scheduled Referrals Name Type Priority Associated Diagnoses Order Schedule Referral to Hematology and Oncology Outpatient Referral Routine Thrombocytosis Ordered: 08/31/2021 documented as of this encounter Visit Diagnoses Diagnosis Thrombocytosis Essential thrombocythemia documented in this encounter Care Teams Polisher Aluminum Relationship Specialty Start Date End Date Vanessa Diaz APRN [facility] [address] [place] [address] PCP - General 03/28/13 10/16/21 documented as of this encounter
[2024-03-10 21:40] LABS: Rheumatoid Factor <8.6 IU/mL (<12.0)
[2024-03-10 21:58] LABS: T3,Free 3.7 pg/mL (2.8-5.3)
[2024-03-11 09:25] LABS: Cyclic Citrullinated Peptide <2.5 U/mL (<5.0)
[2024-03-11 12:27] LABS: ANA Interpretation Negative (Negative)
== END 2024-03-10 16:40 | disposition home or self-care (01) ==
LOC: NCHCN 16:39
PROVIDERS: PCP Nurse Practitioner Family; Visit Provider Nurse Practitioner Family
DX: I10 Essential (primary) hypertension (principal); M25.59 Pain in other specified joint; E55.9 Vitamin D deficiency, unspecified
CPT/HCPCS: 80053; 80061; 82306; 86200; 81003; 81015; 82043; 82570; 82728; 83540; 83550; 84439; 84443; 84481; 86038; 86140; 86431

== ENCOUNTER 2024-04-02 02:46 | Outpatient (CLI) | payer MEDICAID, SELFPAY ==
--- NOTE | 2024-04-02 | DI.MAMMO_ITS ---
Exam(s) MAMMO SCREENING EXAM: MAMMO SCREENING CLINICAL HISTORY: Z12.31 Screening TECHNIQUE: Bilateral full field digital CC and MLO mammographic images were obtained with 3D tomosyn thesis and utilizing computer aided detection (CAD). COMPARISON: Available for comparison. FINDINGS: Masses/Architectural Distortion: No new masses are seen. No areas of architectural distortion are pr esent. Stable scattered nodular densities are seen in both breasts. Microcalcifications: No suspicious pleomorphic-type are seen. Skin Thickening/Nipple Retraction: None. IMPRESSION: 1. No significant interval change with no specific features of malignancy noted. 2. Unless there is more urgent need, screening mammography is recommended, as per [employer] guidelines. BI-RADS Category 2 - Benign Findings Breast Density - Category B - Scattered areas of fibroglandular density Breast density category C or D implies that the patient has dense breast tissue. Dense breast tissue is very common and is not abnormal but dense breast tissue can make it harder to find cancer on a ma mmogram. Also, dense breast tissue may increase their breast cancer risk. This information about the result of the mammogram report was provided to the patient to raise their awareness. Use this report when you speak with the patient about their risks for breast cancer, which includes their family hist ory. At that time, you may recommend for more screening tests (Ultrasound or MRI) as they might be us eful based on their risk. A negative radiographic report should not delay biopsy if a dominant or clinically suspicious mass is present. Up to ten percent of cancers are not identified on mammography. A negative report may reinforce clinical impression. Adenosis and dense breasts may obscure an underlying neoplasm. False positive reports average 6 to 10%. Patient will receive a letter notifying them of these results.
--- NOTE | 2024-04-02 | DI.US_ITS ---
Exam(s) US THYROID EXAM: US THYROID CLINICAL HISTORY: E04.1 Nontoxic single thyroid nodule, uninodular goiter. TECHNIQUE: Ultrasound thyroid performed using standard protocol. COMPARISON: US US THYROID from 11/28/2022 FINDINGS: ISTHMUS: 2.8 mm. There is again seen a solid hypoechoic nodule within the isthmus. It measures 0.5 x 0.3 x 0.4 cm. Previously it measured 0.6 x 0.3 x 0.5 cm. It is consistent with a TI rads 4 level nodule. Due to its size, no follow-up is recommended. RIGHT LOBE: Size: 3.9 x 1.0 x 1.5 cm Echogenicity: Normal. Vascularity: Normal. Nodules: There is again seen a solid isoechoic nodule in the superior pole. It measures 1.0 x 0.5 x 0.8 cm. This compares to 0.8 x 0.6 x 0.8 cm. Punctate echogenic foci are again seen internally. It is consistent with a TI rads level 4 nodule. Due to its size, follow-up is recommended. LEFT LOBE: Size: 3.7 x 1.0 x 1.2 cm Echogenicity: Normal. Vascularity: Normal. Nodules: There is again seen a cyst in the lower pole of the left thyroid gland. There is also a angelito id isoechoic nodule measuring 0.5 x 0.3 x 0.4 cm. This compares to 0.6 x 0.3 x 0.4 cm on the prior e xamination. It remains a TI rads level 3 nodule. Due to its size, no follow-up is recommended. OTHER FINDINGS: None. IMPRESSION: Stable thyroid nodules. DATA REPOSITORY:
== END 2024-04-02 03:06 ==
LOC: DI 02:46
PROVIDERS: PCP Nurse Practitioner Family; Visit Provider Nurse Practitioner Family
DX: E04.1 Nontoxic single thyroid nodule (principal); Z12.31 Encounter for screening mammogram for malignant neoplasm of breast
CPT/HCPCS: 77063; 77067; 76536

== ENCOUNTER 2024-04-24 13:28 | Outpatient (REF) | payer MEDICAID, SELFPAY ==
[2024-04-24 13:58] LABS: Abs Immature Grans 0.03 10^3/uL (0.0-0.06); Absolute Basophil Count 0.04 10^3/uL (0.0-0.2); Absolute Eosinophil Count 0.16 10^3/uL (0.0-0.7); Absolute Lymphocyte Count 2.71 10^3/uL (1.2-3.4); Absolute Monocyte Count 0.41 10^3/uL (0.1-0.8); Absolute Neutrophil Count 4.84 10^3/uL (1.2-6.7); Basophils % 0.5 %; HCT 42.4 % (36.0-46.0); HGB 13.8 g/dL (11.2-15.7); Immature Grans % 0.4 %; Lymphocytes % 33.1 %; MCH 27.9 pg (27.0-33.0); MCHC 32.5 % (32.0-36.0); MCV 86 fL (80-95); MPV 9.9 fL (8.0-11.0); Platelet Count 353 10^3/uL (130-400); RBC 4.94 10^6/uL (3.93-5.22); RDW 13.8 % (11.7-14.6); RDW-SD 42.5 fL; WBC 8.19 10^3/uL (4.4-10.8)
[2024-04-24 14:00] LABS: ESR 37 mm/hr (0-30)
[2024-04-24 17:06] LABS: ALT 42 U/L (14-59); AST 27 U/L (15-37); Albumin 3.7 g/dL (3.4-5.0); Alkaline Phosphatase 132 U/L (46-116); Anion Gap 10.1 mmol/L (3-11); BUN 12 mg/dL (7-18); Bilirubin, Total 0.32 mg/dL (0.2-1.0); CO2 27.9 mmol/L (21.0-32.0); CREATININE 0.7 mg/dL (0.55-1.02); Calcium 9.7 mg/dL (8.5-10.1); Calculated LDL 127 mg/dL (<100); Chloride 105 mmol/L (98-107); Cholesterol 209 mg/dL (<200); Estimated GFR 102.07 (mL/min/1.73m2); Ferritin 84 ng/mL (8-252); Glucose 93 mg/dL (74-106); HDL Cholesterol 59 mg/dL (40-60); Potassium 4.2 mmol/L (3.5-5.1); Sodium 143 mmol/L (136-145); Total Protein 7.3 g/dL (6.4-8.2); Triglyceride 118 mg/dL (<150)
[2024-04-24 17:24] LABS: GGT 52 U/L (5-55)
[2024-04-25 14:38] LABS: ANA Interpretation Negative (Negative)
== END 2024-04-24 13:29 | disposition home or self-care (01) ==
LOC: NCHCN 13:28
PROVIDERS: PCP Nurse Practitioner Family; Visit Provider Nurse Practitioner Family
DX: E78.5 Hyperlipidemia, unspecified (principal); D50.9 Iron deficiency anemia, unspecified; M25.59 Pain in other specified joint
CPT/HCPCS: 80053; 80061; 85652; 82728; 82977; 85025; 86038

== ENCOUNTER 2024-07-18 06:18 | Emergency (ER) | payer MEDICAID, SELFPAY ==
[2024-07-18 06:22] VITALS: BP 178/84; PULSE 114; RESP 18; TEMP 36.6; O2SAT 95
--- NOTE | 2024-07-18 06:23 | W.ED.GENAD ---
Discharge Plan Discharge Details Chief Complaint: Abd Prob Primary Care Provider: Camelia Larose ED Provider: Angel Cervantes [employer] Meds and New Rx's Prescriptions: No Action acetylcysteine [NAC] 600 mg capsule 600 mg PO BID CBD 20 mg oil 20 mg PO BID cholecalciferol (vitamin D3) 125 mcg (5,000 unit) capsule 125 mcg PO DAILY famotidine 20 mg tablet 20 mg PO DAILY PRN multivitamin Tablet 1 tab PO DAILY zinc gluconate,zinc picolinate 30 mg capsule 30 mg PO DAILY fluoxetine 40 mg capsule 40 mg PO DAILY albuterol sulfate [Proventil HFA] 90 mcg/actuation HFA aerosol inhaler 2 puff inhalation Q4H PRN fluoxetine [Prozac] 10 mg capsule 10 mg PO DAILY organ concentrates 80 mg capsule PO amitriptyline 25 mg Tablet 25 mg PO DAILY ibuprofen 800 mg tablet 800 mg PO Q8H PRNQty: 20 1RF atorvastatin 10 mg tablet 10 mg PO DAILY Patient Comments: TAKE ONE TABLET BY MOUTH EVERY DAY HPI General Mode of arrival: ambulatory. Date/Time Provider Initiated Documentation: 07/18/24 06:23. Limitations to Documentation: no limitations. Information obtained by: patient and RN notes reviewed. HPI Narrative: Patient presents to ED with complaint of lower abdominal pain that began Sunday night and became progressively worse. She denies any fever, nausea, vomiting, diarrhea. She has no urinary symptoms however trying to urinate causes the lower abdominal pain to be worse. There is no radiation of pain into the back. She is status postcholecystectomy but does have her appendix. Denies any cough, chest pain or shortness of breath. Pain steadily worse prompting visit to the ED. Related Data Home Medications ?Medication ?Instructions ?Recorded ?Confirmed famotidine 20 mg tablet 20 mg PO DAILY PRN 01/25/21 07/18/24 multivitamin 1 tab PO DAILY 01/25/21 07/18/24 amitriptyline 25 mg tablet 25 mg PO DAILY 12/20/21 07/18/24 CBD 20 mg PO BID 06/01/22 04/24/23 acetylcysteine 600 mg capsule (NAC) 600 mg PO BID 06/01/22 07/18/24 zinc gluconate,zinc picolinate 30 30 mg PO DAILY 06/01/22 07/18/24 mg capsule ibuprofen 800 mg tablet 800 mg PO Q8H PRN #20 tabs 02/07/23 07/18/24 cholecalciferol (vitamin D3) 125 125 mcg PO DAILY 04/24/23 07/18/24 mcg (5,000 unit) capsule albuterol sulfate 90 mcg/actuation 2 puff inhalation Q4H PRN 04/25/23 07/18/24 aerosol inhaler (Proventil HFA) fluoxetine 10 mg capsule (Prozac) 10 mg PO DAILY 04/25/23 07/18/24 fluoxetine 40 mg capsule 40 mg PO DAILY 04/25/23 07/18/24 organ concentrates 80 mg capsule mg PO 04/25/23 atorvastatin 10 mg tablet 10 mg PO DAILY 07/18/24 07/18/24 Previous Rx's ?Medication ?Instructions ?Recorded ibuprofen 800 mg tablet 800 mg PO Q8H PRN #20 tabs 02/07/23 Allergies Allergy/AdvReac Type Severity Reaction Status Date / Time fluconazole (From Diflucan) Allergy Severe rash Verified 07/18/24 06:26 bactrim AdvReac Other (See Uncoded 07/18/24 06:26 Comment) General GURJIT: 3 Exam Narrative Exam Narrative: Const: Obese female in NAD. VS per triage. HEENT: NC/AT. Normal facial exam. Neck: Supple. Trachea midline. Lungs: Normal respiratory effort. Lungs are clear. Cor: RRR without murmur. Good radial pulses. GI: Soft/ND. Tender across the lower abdomen, guarding suprapubic. Neuro: A+O x 3. Normal speech, mentation, gait. Cranial nerves II - XII grossly intact. No gross motor or sensory deficit. Ext: No C/C/E. Medical Decision Making Patient presents to ED with lower abdominal pain worsening over the last 36 hours. No real associated symptoms. She is tender across lower abdomen but guards in the suprapubic area. She does not have urinary symptoms per se but pain in the abdomen while trying to urinate. She does have her appendix. Differential would include urinary tract infection which seems unlikely given her tenderness, appendicitis, diverticulitis. Will obtain IV, laboratory studies, CT scan, fluids and ketorolac. Patient be signed out to [facility] day ED physician pending results of lab and CT. PFSH All Active Problems Pedal edema (Acute) Seasonal allergies (Acute) Fatigue (Acute) Low back pain (Acute) Joint pain (Acute) Perimenopausal (Acute) Nocturnal leg cramps (Acute) Overflow incontinence (Acute) Dyspepsia (Acute) Nabothian cyst (Acute) Iron deficiency anemia (Acute) Medical History Hx of sleep apnea uses a cpap Family history of breast cancer Umbilical hernia History of HPV infection History of uterine fibroid Anxiety and depression Obesity Multinodular thyroid Chronic headaches Vitamin D deficiency Family history of coronary artery disease Hyperlipidemia Surgical History Status post dilation and curettage History of colonoscopy (~09/2022) Hx of oral surgery Teeth removed during teen years Hx of tubal ligation during second c secction Hx of cholecystectomy Hx of section x 2 Social History Smoking/Tobacco Use Status: Never Smoking risk assessment performed?: Yes Alcohol Intake: current Alcohol Intake frequency: a few times a month Alcohol type: beer, wine and hard liquor Drug use: Occasionally Substance use type: marijuana Housing: house Do you feel safe at home: Yes Do you feel safe in your relationship?: Yes
--- NOTE | 2024-07-18 06:30 | DI.CT_ITS ---
Exam(s) CT ABDOMEN PELVIS W EXAM: CT ABDOMEN PELVIS W CLINICAL HISTORY: lower abd pain and tenderness. TECHNIQUE: Imaging Protocol: Axial computed tomography images with coronal and sagittal reformatted images were created and reviewed CONTRAST MATERIAL: Intravenous: Omnipaque-350 100cc Oral: None COMPARISON: No exams were available for comparison FINDINGS: VISUALIZED LUNG BASES: No nodules nor pleural effusions evident. ABDOMEN: There is no ascites. LIVER: There are no focal hepatic lesions evident. No dilated intrahepatic ducts. GALLBLADDER/BILIARY: Gallbladder is not visualized and may be surgically absent. There are no surgic al clips in the gallbladder fossa. CBD is not dilated. PANCREAS: zz SPLEEN: Spleen is not enlarged. No obvious intrasplenic lesions. Splenic and portal veins are paten t. ADRENALS: There are no significant adrenal masses. KIDNEYS:No cysts evident. No solid renal masses. No calculi nor hydronephrosis.. ABDOMINAL AORTA: Abdominal aorta is not enlarged. LYMPH NODES:There is no retroperitoneal nor paraaortic adenopathy. ABDOMINAL WALL: There is an anterior abdominal wall midline fat containing umbilical hernia. This do es not contain bowel loops nor fluid within the hernia sac. GI: There is no evidence of bowel obstruction, free air, nor abscess. PELVIS: GI: No evidence of appendicitis.There is sigmoid diverticuli and there are findings consistent with a cute diverticulitis in the sigmoid. There is edema of the large bowel wall at this level well as Per i diverticular streaking. No obvious free air nor abscess evident at this time. LYMPH NODES: There is no intrapelvic nor inguinal adenopathy. REPRODUCTIVE: Anteverted uterus. No obvious fibroids. Endometrial thickness upper normal. There is a cyst in the left ovary measuring 2.2 x 1.8 cm. Right adnexa unremarkable. URINARY BLADDER: No calculi nor obvious masses evident. No intraluminal gas. OSSEOUS: No fractures and no significant osseous lesions. IMPRESSION: 1. Findings are consistent with sigmoid diverticulitis. No obvious abscess at this time. 2. Other findings as above. RADIATION DOSE DELIVERED: 826.29mGy.cm Total DLP DATA REPOSITORY: All CT scans at this facility are submitted to the National Radiology Data Registry (NRDR) Dose Index Registry (DIR) with the [employer] (A[employer]). RADIATION OPTIMIZATION: All CT scans at this facility use at least one of these dose optimization te chniques: automated exposure control; mA and/or kV adjustment per patient size (includes targeted exa ms where dose is matched to clinical indication); or iterative reconstruction.
[2024-07-18] MEDS: Normal Saline 1,000 ML 1000 ML IV (06:52)
[2024-07-18] MEDS: Ketorolac 15 MG/ML VIAL IVP (06:52)
[2024-07-18 06:59] LABS: Abs Immature Grans 0.06 10^3/uL (0.0-0.06); Absolute Lymphocyte Count 1.99 10^3/uL (1.2-3.4); Absolute Monocyte Count 0.72 10^3/uL (0.1-0.8); Absolute Neutrophil Count 8.74 10^3/uL (1.2-6.7); Basophils % 0.3 %; Eosinophils % 0.9 %; HCT 39.5 % (36.0-46.0); HGB 13.1 g/dL (11.2-15.7); Immature Grans % 0.5 %; Lymphocytes % 17.1 %; MCH 28.2 pg (27.0-33.0); MCHC 33.2 % (32.0-36.0); MCV 85 fL (80-95); Monocytes % 6.2 %; Platelet Count 327 10^3/uL (130-400); RBC 4.65 10^6/uL (3.93-5.22); RDW 13.8 % (11.7-14.6); RDW-SD 42.4 fL; WBC 11.65 10^3/uL (4.4-10.8)
[2024-07-18 07:02] LABS: Absolute Basophil Count 0.03 10^3/uL (0.0-0.2)
[2024-07-18] MEDS: Normal Saline - Diluent 50 ML VIAL IJ (07:10)
[2024-07-18] MEDS: Omnipaque 350 MG/ML 500 ML BTL-Imaging package 100 ML IJ (07:11)
[2024-07-18 07:28] LABS: ALT 29 U/L (14-59); AST 13 U/L (15-37); Albumin 3.3 g/dL (3.4-5.0); Alkaline Phosphatase 123 U/L (46-116); Anion Gap 9.5 mmol/L (3-11); BUN 14 mg/dL (7-18); Bilirubin, Total 0.5 mg/dL (0.2-1.0); CO2 27.5 mmol/L (21.0-32.0); CREATININE 0.8 mg/dL (0.55-1.02); Calcium 9.3 mg/dL (8.5-10.1); Chloride 103 mmol/L (98-107); Estimated GFR 86.96 (mL/min/1.73m2); Glucose 128 mg/dL (74-106); Lipase 82 U/L (<78); Magnesium 1.8 mg/dL (1.8-2.4); Potassium 3.6 mmol/L (3.5-5.1); Sodium 140 mmol/L (136-145); Total Protein 7.4 g/dL (6.4-8.2)
[2024-07-18 07:38] VITALS: BP 160/66; PULSE 88; O2SAT 97
--- NOTE | 2024-07-18 07:38 | W.EDPROG ---
Date of service: 07/18/24 Time of Service: 07:00 Medical Decision Making In brief, this is a 53-year-old female patient who is being evaluated in our emergency department for lower left abdominal pain. At the time that I took over her care her disposition was pending completion of laboratory studies and CT imaging. She received Toradol and IV fluids for symptomatic management and rehydration to good effect. I independently interpreted the laboratory studies, which show no significant leukocytosis, anemia, or thrombocytopenia. The chemistry panel is without evidence of electrolyte abnormality, kidney dysfunction, or liver injury. Lipase is slightly above the upper limit of normal, but below the 3 times the upper limit of normal cutoff that would increase my concern for acute pancreatitis. Urinalysis noninfectious, though with trace blood. I reviewed the patient CT scan, which is most notable for uncomplicated sigmoid diverticulitis. The patient's vital signs remained stable and her tachycardia has resolved. She was able to tolerate oral fluids in the emergency department and I do feel that she is appropriate for a trial of outpatient treatment. I recommended bowel rest, conservative pain management, and provided her with a prescription for Augmentin, 3 times daily for 5 days. At this time, the patient has had a full medical evaluation and is safe for discharge to home. They are hemodynamically stable, ambulatory, and tolerating PO. They are understanding of the follow-up plan and return precautions. They left our facility without incident. Felicia Werner MD Medical Records Medical records reviewed: Yes I reviewed the patient's medical records. Lab Data Lab results reviewed: Yes I reviewed the patient's lab results. Quality:SDOH Health Related Social Needs: No Data to Display Discharge Plan Disposition Patient Disposition: Home Condition: Stable Discharge Details Clinical Impression: Diverticulitis, Hematuria, microscopic Primary Care Provider: Camelia Larose ED Provider: Felicia Werner Home Meds and New Rx's Prescriptions: New amoxicillin-pot clavulanate 875-125 mg tablet 1 tab PO Q8H 5 Days Qty: 15 0RF No Action acetylcysteine [NAC] 600 mg capsule 600 mg PO BID CBD 20 mg oil 20 mg PO BID cholecalciferol (vitamin D3) 125 mcg (5,000 unit) capsule 125 mcg PO DAILY famotidine 20 mg tablet 20 mg PO DAILY PRN multivitamin Tablet 1 tab PO DAILY zinc gluconate,zinc picolinate 30 mg capsule 30 mg PO DAILY fluoxetine 40 mg capsule 40 mg PO DAILY albuterol sulfate [Proventil HFA] 90 mcg/actuation HFA aerosol inhaler 2 puff inhalation Q4H PRN fluoxetine [Prozac] 10 mg capsule 10 mg PO DAILY organ concentrates 80 mg capsule 80 mg PO DAILY amitriptyline 25 mg Tablet 25 mg PO DAILY ibuprofen 800 mg tablet 800 mg PO Q8H PRNQty: 20 1RF atorvastatin 10 mg tablet 10 mg PO DAILY Patient Comments: TAKE ONE TABLET BY MOUTH EVERY DAY Discharge Instructions Instructions: Diverticulitis (DC) Additional Instructions: You were seen in the emergency department today for evaluation of abdominal pain and were found to have diverticulitis. Your CT scan reassuringly does not show any evidence of complications such as perforation or abscess, and at this time we are going to trial a course of outpatient antibiotics and bowel rest. This involves drinking a clear liquid diet for the next 1 to 2 days, and gradually reintroducing foods to your diet starting with bland foods like toast and crackers, yogurt, and slowly increasing the variety of your diet until you are back to normal. You were prescribed Augmentin, an antibiotic to be taken 3 times per day for the next 5 days. Please take all of this medication until it is gone, even if you start to feel better. Please maintain good hydration, and please use therapeutic dosing of Tylenol (acetaminophen) & Advil (ibuprofen) in an alternating fashion as follows: Take 1000mg of Tylenol every 6 hours without missing doses- that is 4 times per day. [place] in between the Tylenol doses, take 600mg of Advil also on a 6 hour schedule, that is also 4 times per day. With this strategy, you will be taking something for fever/pain as often as every 3 hours. The daily maximum dosing of Tylenol is 4000mg, and the daily maximum dosing of Advil is 2400mg. Please note that some common cold medications & prescription pain medications may contain acetaminophen and you need to read OTC drug labels and factor that in to maximum daily doses. If you develop fever, nausea or vomiting that prevents you from taking your medications, or a sudden or severe change or worsening of your pain you need to return to the emergency department for reevaluation. Please follow-up with your primary care provider in the next few days to discuss this visit and any symptoms that change, worsen, or persist. Thank you for allowing us to be part of your care.
[2024-07-18 07:48] LABS: Bilirubin Negative (Negative); Blood Trace-intact (Negative); Clarity Clear (Clear); Glucose Negative (Negative); Ketones Negative (Negative); Leukocyte Esterase Negative (Negative); Nitrite Negative (Negative); Urobilinogen 0.2 mg/dL (Up to 0.2)
[2024-07-18 08:01] VITALS: BP 129/47; PULSE 80; O2SAT 97
--- NOTE | 2024-07-18 08:01 | DI.VRAD_ITS ---
PROCEDURE INFORMATION: Exam: CT Abdomen And Pelvis With Contrast Exam date and time: 07/18/2024 7:17 AM Age: 53 years old Clinical indication: Abdominal pain; Localized; Lower abd pain and tendernes TECHNIQUE: Imaging protocol: Computed tomography of the abdomen and pelvis with contrast. Contrast material: OMNIPAQUE 350; Contrast volume: 100 ml; Contrast route: INTRAVENOUS (IV); COMPARISON: No relevant prior studies are available for comparison. FINDINGS: Liver: Mild hepatomegaly. Gallbladder and biliary ducts: Gallbladder not visualized. Pancreas: No CT evidence for acute pancreatitis. Spleen: No splenomegaly. Adrenal glands: Nodular left adrenal thickening. Kidneys and ureters: No hydronephrosis or evidence for pyelonephritis. Stomach and bowel: Colonic diverticula. There are inflammatory changes adjacent to a thickened segment of sigmoid colon in the pelvis, consistent with diverticulitis. Retained fecal material is present in the colon. No intestinal obstruction is evident. Appendix: No evidence of appendicitis. Intraperitoneal space: No free air. Vasculature: Arterial calcifications. Lymph nodes: Nonspecific mesenteric and retroperitoneal lymph nodes. Urinary bladder: No acute findings. Reproductive: Central hypodensity in the uterus, likely secretory phase endometrium. 2.2 cm left ovarian cyst. Bones/joints: No pertinent acute abnormality seen. Soft tissues: Fat containing umbilical hernia. IMPRESSION: 1. Diverticulitis as above. 2. Additional findings as above. Dictated and Authenticated by: Mabel Will MD. Orderin Billy Ortiz MD
[2024-07-18 08:06] LABS: Bacteria Few HPF (Negative); C & S Indicated? No; Casts Negative LPF (Negative); Crystals Negative HPF (Negative); Epithelial Cells Negative HPF (Negative); Mucus Negative (Negative); WBC 0-2 HPF (0-5)
[2024-07-18 08:31] VITALS: BP 119/61; PULSE 73; O2SAT 97
== END 2024-07-18 08:48 | disposition home or self-care (01) ==
PROVIDERS: Emergency Medicine; Emergency Provider Emergency Medicine; PCP Nurse Practitioner Family
DX: K57.92 Diverticulitis of intestine, part unspecified, without perforation or abscess without bleeding (principal); R10.32 Left lower quadrant pain; R31.29 Other microscopic hematuria
CPT/HCPCS: 99284; 99285; 96374; 00123; 80053; 83690; 96361; 74177; 81003; 81015; 83735; 85025; J1885

== ENCOUNTER 2024-12-09 14:56 | Outpatient (REF) | payer OTHER, SELFPAY ==
[2024-12-09 21:07] LABS: Glucose Negative (Negative)
[2024-12-09 21:33] LABS: COMMENT (LAB VIEW ONLY) 46.68 mg/dL; Microalb ug/mg Crea 14.1 ug/mg Cr
== END 2024-12-09 14:57 | disposition home or self-care (01) ==
LOC: NCHCN 14:56
PROVIDERS: PCP Nurse Practitioner Family; Visit Provider Nurse Practitioner Family
DX: I10 Essential (primary) hypertension (principal)
CPT/HCPCS: 81003; 82043; 82570

== ENCOUNTER 2024-12-22 03:54 | Outpatient (CLI) | payer OTHER, SELFPAY ==
[2024-12-22 07:15] LABS: Abs Immature Grans 0.02 10^3/uL (0.0-0.06); HCT 38.5 % (36.0-46.0); HGB 12.6 g/dL (11.2-15.7); Immature Grans % 0.3 %; MCH 27.6 pg (27.0-33.0); MCHC 32.7 % (32.0-36.0); MCV 84 fL (80-95); MPV 9.4 fL (8.0-11.0); Platelet Count 310 10^3/uL (130-400); RBC 4.56 10^6/uL (3.93-5.22); RDW 13.9 % (11.7-14.6); RDW-SD 42.8 fL; WBC 7.62 10^3/uL (4.4-10.8)
[2024-12-22 08:04] LABS: ALT 33 U/L (14-59); AST 17 U/L (15-37); Albumin 3.2 g/dL (3.4-5.0); Alkaline Phosphatase 104 U/L (46-116); Anion Gap 9.5 mmol/L (3-11); BUN 11 mg/dL (7-18); Bilirubin, Total 0.3 mg/dL (0.2-1.0); CO2 28.5 mmol/L (21.0-32.0); Calcium 9.2 mg/dL (8.5-10.1); Calculated LDL 121 mg/dL (<100); Chloride 101 mmol/L (98-107); Cholesterol 196 mg/dL (<200); Estimated GFR 105.28 (mL/min/1.73m2); Ferritin 67 ng/mL (8-252); Glucose 117 mg/dL (74-106); HDL Cholesterol 49 mg/dL (>or=50); Potassium 3.7 mmol/L (3.5-5.1); Sodium 139 mmol/L (136-145); TSH (W/Ref FT4) 4.42 uIU/mL (0.36-3.74); Total Protein 7.3 g/dL (6.4-8.2); Triglyceride 134 mg/dL (<150); Vitamin D 25 Total 32 ng/mL (30-100)
[2024-12-22 08:08] LABS: Iron 65 ug/dL (50-170); Total Iron Binding Capacity 313 ug/dL (250-450); Transferrin Sat 21 % (15-50)
[2024-12-23 13:10] LABS: Hemoglobin A1C 6.0 % (<5.7)
[2024-12-29 17:25] LABS: Alkaline Phosphatase 105 U/L (35 - 104); Liver % 63.6 % (30.2-74.7)
== END 2024-12-22 03:55 | disposition home or self-care (01) ==
LOC: LBO 03:55
PROVIDERS: PCP Nurse Practitioner Family; Visit Provider Nurse Practitioner Family
DX: E66.9 Obesity, unspecified (principal); R74.8 Abnormal levels of other serum enzymes; I10 Essential (primary) hypertension; D50.9 Iron deficiency anemia, unspecified; E04.1 Nontoxic single thyroid nodule
CPT/HCPCS: 36415; 80053; 80061; 82306; 84075; 84080; 82728; 83036; 83540; 83550; 84439; 84443; 85025

== ENCOUNTER 2025-03-03 09:11 | Outpatient (REF) | payer OTHER, SELFPAY ==
[2025-03-04 18:33] LABS: Hepatitis C Ab w Rflx HCV PCR Negative (Negative)
[2025-03-04 18:35] LABS: HIV-1/2 Ag & Ab Screen Negative (Negative)
[2025-03-05 12:00] LABS: Syphilis Serology (RPR) Negative (Negative)
[2025-03-05 12:18] LABS: Chlamydia Result Negative (Negative); GC Result Negative (Negative)
== END 2025-03-03 09:12 | disposition home or self-care (01) ==
LOC: NCHCN 09:11
PROVIDERS: PCP Nurse Practitioner Family; Visit Provider Nurse Practitioner Family
DX: Z11.3 Encounter for screening for infections with a predominantly sexual mode of transmission (principal)
CPT/HCPCS: 86803; 87389; 87491; 87591; 86592; 87480; 87510; 87660